=== PATIENT | female | born 1950 | race Caucasian/White ===

== ENCOUNTER → 2017-04-15 | Outpatient (CLI) | payer BC ==
[~2017-04-15] MED LIST: CLOP1TAB15 PO; CRS/10 PO; DOCU100C PO; LEVO50TA6 PO; LSN/10125 PO; METO50TA7 PO; POTA10CA28 PO; RANI1TAB13 PO; SITA50TA5 PO; TRAM-10 PO
[2017-04-15 09:41] LABS: ALT/SGPT 39 U/L (12-78); AST/SGOT 30 U/L (15-37); BLOOD UREA NITROGEN 17 mg/dl (7-18); CALCIUM 9.2 mg/dl (8.5-10.1); CARBON DIOXIDE 28 mmol/L (21-32); CHLORIDE 104 mmol/L (98-107); CREATININE 0.73 mg/dl (0.60-1.20); GLUCOSE 74 mg/dl (70-99); POTASSIUM 3.8 mmol/L (3.5-5.1); SODIUM 140 mmol/L (136-145)
[2017-04-15 09:51] LABS: CHOLESTEROL 136 mg/dl (0-200); CHOLESTEROL/HDL RATIO 2.7; HDL CHOLESTEROL 51 mg/dl; LDL CHOLESTEROL CALCULATED 69 mg/dl; TRIGLYCERIDES 81 mg/dl (0-150); VERY LOW DENSITY LIPOPROT CALC 16 mg/dl
== END | disposition home or self-care (01) ==
LOC: C.LAB 06:19
DX: E11.9 Type 2 diabetes mellitus without complications (principal); I10 Essential (primary) hypertension; E78.5 Hyperlipidemia, unspecified; E03.9 Hypothyroidism, unspecified

== ENCOUNTER → 2017-05-14 | Outpatient (CLI) | payer BC ==
--- NOTE | 2017-05-14 16:08 | MAMMOGRAPHY REPORT ---
BILATERAL DIGITAL SCREENING MAMMOGRAM WITH CAD: 05/14/2017 CLINICAL HISTORY: Routine screening. Patient has no complaints. TECHNIQUE: Bilateral CC, MLO and repeat left cc views with the nipple in profile were obtained. Cur rent study was also evaluated with a Computer Aided Detection (CAD) system. COMPARISON: Comparison is made to exams dated: 05/11/2016 mammogram, 05/10/2015 mammogram, 03/17/2014 ma mmogram, 03/16/2013 mammogram, 03/13/2012 mammogram, and 03/13/2011 mammogram - [facility]. BREAST COMPOSITION: The tissue of both breasts is almost entirely fatty. FINDINGS: There is a stable 9 mm focal asymmetry in the lower inner quadrant of the left breast, and a stable focal asymmetry in the 6:00 right breast. A few benign round calcifications. No new suspici ous mass, architectural distortion or cluster of microcalcifications is seen. IMPRESSION: ACR BI-RADS CATEGORY 1: NEGATIVE There is no mammographic evidence of malignancy. A 1 year screening mammogram is recommended. The pa tient will receive written notification of the results. Approximately 10% of breast cancers are not detected with mammography. A negative mammographic report should not delay biopsy if a clinically suggestive mass is present. Kaya Jackson M.D. ay/:05/14/2017 15:48:05 Showroom Manager: Padma ACEVEDO)(Carly), [facility] letter sent: Normal 1/2 BI-RADS Code: ACR BI-RADS Category 1: Negative
== END | disposition home or self-care (01) ==
LOC: C.MAMM 15:13
DX: Z12.31 Encounter for screening mammogram for malignant neoplasm of breast (principal); M85.851 Other specified disorders of bone density and structure, right thigh

== ENCOUNTER → 2017-10-17 | Outpatient (CLI) | payer BC ==
[2017-10-17 14:59] LABS: ALT/SGPT 31 U/L (12-78); AST/SGOT 26 U/L (15-37); BLOOD UREA NITROGEN 14 mg/dl (7-18); CALCIUM 9.2 mg/dl (8.5-10.1); CARBON DIOXIDE 27 mmol/L (21-32); CHOLESTEROL 129 mg/dl (0-200); CREATININE 0.87 mg/dl (0.60-1.20); GLUCOSE 93 mg/dl (70-99); POTASSIUM 4.1 mmol/L (3.5-5.1); SODIUM 138 mmol/L (136-145)
[2017-10-17 15:09] LABS: LDL CHOLESTEROL CALCULATED 60 mg/dl
== END | disposition home or self-care (01) ==
LOC: C.LAB 13:51
DX: E11.9 Type 2 diabetes mellitus without complications (principal); E55.9 Vitamin D deficiency, unspecified; I10 Essential (primary) hypertension; E78.5 Hyperlipidemia, unspecified

== ENCOUNTER → 2018-05-09 | Outpatient (CLI) | payer BC ==
[~2018-05-09] MED LIST changes: -METO50TA7 PO; +METO50TA8 PO; +OPTIRAY 320 IV PRN
[2018-05-09 17:36] LABS: BASO % 0.4 %; BASO ABS # 0.04 K/uL (0-0.2); EOS % 8.4 %; HEMATOCRIT 43.5 % (37-47); IG# 0.01 K/uL (0.00-0.02); LYMPH % 34.2 %; LYMPH ABS # 3.26 K/uL (1.2-3.4); MEAN CELL VOLUME 97.3 fL (80-100); MEAN CORPUSCULAR HEMOGLOBIN 31.3 pg (25-34); MEAN CORPUSCULAR HGB CONC 32.2 g/dl (32-36); MEAN PLATELET VOLUME 11.8 fL (7.4-10.4); MONO % 6.3 %; NEUT % 50.6 %; NEUT ABS # 4.82 K/uL (1.4-6.5); PLATELET COUNT 294 K/uL (130-400); RED CELL DISTRIBUTION WIDTH CV 13.4 % (11.5-14.5); RED CELL DISTRIBUTION WIDTH SD 47.9 fL (36.4-46.3); WHITE BLOOD COUNT 9.53 K/uL (4.8-10.8)
[2018-05-09 18:01] LABS: BLOOD UREA NITROGEN 20 mg/dl (7-18); CALCIUM 9.6 mg/dl (8.5-10.1); CARBON DIOXIDE 24 mmol/L (21-32); CREATININE 1.13 mg/dl (0.60-1.20); GLUCOSE 96 mg/dl (70-99); POTASSIUM 4.1 mmol/L (3.5-5.1); SODIUM 137 mmol/L (136-145)
--- NOTE | 2018-05-09 19:53 | DIAGNOSTIC IMAGING REPORT ---
SOFT TISSUE NECK WITH HISTORY: 67 years-old Female PARAPHARYNGEAL ABCESS acute neck pain with possible parapharyngeal abscess. COMPARISON: Cervical spine 03/04/2009 TECHNIQUE: Multiple axial CT images of the soft tissues of the neck were obtained following the intravenous administration of 92 mL Optiray 320 IV contrast. A dose lowering technique was used consistent with the principals of GALINA. FINDINGS: Imaged intracranial structures demonstrate no acute abnormality. Nasopharynx, oral pharynx and hypopharynx are widely patent and within normal limits. Mild secretions noted within the vallecula and piriform sinuses. The epiglottis, epiglottic folds and true vocal cords appear unremarkable. Subglottic airway is patent and within normal limits. The parapharyngeal fat planes in tissues are symmetric and within normal limits. The adenoid, palatine and lingual tonsils are within normal limits. No drainable fluid collections. No prevertebral edema. Medial course of the right internal carotid arteries in a retropharyngeal location. Calcified plaque about the left carotid bulb. Thyroid is homogeneous and unremarkable. Lung apices appear clear. No pathologically enlarged lymph nodes are identified. 1.1 x 0.8 cm ovoid lesion about the left parotid suggests probable intraparenchymal lymph node. Bones appear intact. Multilevel uncovertebral spurring and facet arthrosis. Mild to moderate intervertebral disc space narrowing is noted at C4-C5 and C5-C6 with mild disc space narrowing at C6-C7. Mastoid air cells and middle ear cavities are clear. Paranasal sinuses also appear generally clear. IMPRESSION: 1. Unremarkable CT of the soft tissues of the neck. No inflammatory changes or parapharyngeal abscess identified. 2. 1.1 x 0.8 cm ovoid lesion about the superficial lobe of the left parotid gland suggests probable intraglandular lymph node. 3. No adenopathy. 4. Degenerative changes about the cervical spine as above. The above report was generated using voice recognition software. It may contain grammatical, syntax or spelling errors. Electronically signed by: Trey Benitez M.D. 05/09/2018 7:51 PM Dictated Date/Time: 05/09/2018 7:44 PM
== END | disposition home or self-care (01) ==
LOC: C.CTS 16:48
DX: J39.0 Retropharyngeal and parapharyngeal abscess (principal); K12.2 Cellulitis and abscess of mouth; M47.812 Spondylosis without myelopathy or radiculopathy, cervical region

== ENCOUNTER 2020-04-27 17:32 | Inpatient (IN) ==
--- NOTE | 2020-04-27 17:48 | Emergency Department Note ---
Impression & Plan Sepsis, Leg pain ED Provider Note NAME: HAKEEM SPEARS AGE: 69 SEX: F : 1950 ARRIVES VIA: Ambulance INFORMANT: Patient, ED PROVIDER(S): Phil Molina MD Chief Complaint: Leg pain, shortness of breath HPI: Patient states that she has had some shortness of breath and associated leg pain. The patient denies any prior history of DVT or PE. The patient denies any recent travel. The patient was recently placed on antibiotics for photosensitivity by her primary care physician. Patient states that her leg pain began today just all of a sudden. The patient denies any recent heavy lifting twisting or turning. The patient describes it primarily in her left lower extremity at the calf. The patient states that is sharp and constant. It is nonradiating. Patient states that she does have difficulty associated walking. The patient shortness of breath has not been associated with any cough. Patient does present with fever. Patient has noticed some worsening shortness of breath with exertion and with lying flat compared to sitting upright or with rest which both improve her shortness of breath. The patient does not wear oxygen at home. Patient denies any recent surgeries or procedures. ROS: See HPI for pertinent positives and negatives. A total of 10 systems were reviewed and otherwise negative. Past medical history: See below Surgical history: See below Social history: See below Physical Exam: GENERAL: Mildly ill in appearance, wearing a mask and nasal cannula in place. EYE EXAM: Normal conjunctiva. PERRL, no anisocoria and EOM's grossly intact w/o pain. NECK: Supple, no nuchal rigidity, no adenopathy, non-tender. No signs of meningismus. LUNGS: No audible wheezing or rhonchi. Normal chest wall mechanics. HEART: Cardiac and regular, no MRG. ABDOMEN: Abdomen soft, non-tender, normo-active bowel sounds, no masses, no rebound or guarding. BACK: No CVA TTP. SKIN: No rashes and no bruising. UPPER EXTREMITIES: Upper extremities are grossly normal. LOWER EXTREMITIES: Pain to the left calf without obvious erythema, bilateral lower extremities appear grossly symmetric in size, good DP pulses and well perfused bilaterally, left lower extremity does appear slightly shortened and externally rotated. NEURO EXAM: A&O x3, cranial nerves II-XII grossly intact, normal speech, moves all 4 extremities on command w/o issue. Differential diagnoses: Sepsis, UTI, pneumonia, metabolic, electrolyte abnormalities, cardiac sources, intracerebral event, toxicologic, neurologic, as well as other pathologies. Course: Patient was seen and evaluated the bedside. Full history physical exam was performed. EKG: Indication: Shortness of breath Sinus tachycardia, rate 123, normal intervals, normal axis, Q wave and T WI in lead III, no obvious ST changes. Nonspecific T wave abnormalities now present with associated increase in heart rate from comparison EKG November 19, 2019. Imaging Studies: Radiology results as stated below per my review in the radiologist's interpretation: XR chest 1V portable HISTORY: 69 years-old Female SEPSIS acute sepsis with left hip pain COMPARISON: Chest radiograph 11/19/2019 TECHNIQUE: Portable AP view of the chest FINDINGS: Cardiac silhouette is enlarged. Mild right hemidiaphragmatic elevation. Subsegmental left basilar opacities. No pneumothorax, large pleural effusion or overt pulmonary edema. Degenerative changes of the shoulders and spine. Cholecystectomy. IMPRESSION: 1. Mild left lung base opacities suggest probable atelectasis. 2. Mild right hemidiaphragmatic elevation. ACT 112: Negative or not required by law. The above report was generated using voice recognition software. It may contain grammatical, syntax or spelling errors. Electronically signed by: Trey Benitez M.D. 04/27/2020 7:29 PM Dictated: 04/27/201927 Transcribed: 04/27/201927 XR hip LT 2V w pelvis HISTORY: 69 years-old Female appears short, external rotation, painful acute left hip pain COMPARISON: None TECHNIQUE: AP view the pelvis with 2 views of the left hip FINDINGS: Limited exam secondary to patient body habitus. 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 Degeneration of the SI joints and imaged lumbar spine. No definite acute fracture or dislocation. IMPRESSION: No definite acute fracture or dislocation. ACT 112: Negative or not required by law. The above report was generated using voice recognition software. It may contain grammatical, syntax or spelling errors. Electronically signed by: Trey Benitez M.D. 04/27/2020 8:22 PM Dictated: 04/27/202020 Transcribed: 04/27/202020 CT angio chest PE protocol CT DOSE: 755.09 mGy.cm HISTORY: 69 years-old Female with PE. Acute chest pain with shortness of breath TECHNIQUE: Multiple CTA images of the chest were obtained after the intravenous administration of 118 ml Optiray 320. Coronal and sagittal MIPS were obtained from the axial data set and were submitted for review. All measurements were obtained according to NASCET criteria. A dose lowering technique was utilized adhering to the principles of ALARA. COMPARISON: Chest radiograph of same day FINDINGS: CTA: The heart is normal in size. No pericardial effusion. Coronary artery calcifications. No thoracic aortic aneurysm or dissection. Patency of the imaged great vessels. The pulmonary arterial tree is opacified to the level of the subsegmental branches and demonstrates no filling defects to suggest thromboembolic disease. CT CHEST: Unremarkable thyroid. No adenopathy. Trace pleural effusions. Right hemidiaphragmatic elevation. Mild subsegmental bibasilar groundglass densities suggest atelectasis. No overt pulmonary edema or airspace consolidation typical for pneumonia. 4 mm subpleural nodule of the lateral segment right middle lobe, likely benign. There are a few scattered thin-walled cysts of the lung bases measuring up to 2.1 cm the left lower lobe. Central airways are patent. Tiny hiatal hernia. Cholecystectomy. Probable hepatic steatosis. The bones appear intact. IMPRESSION: 1. No acute aortic pathology or evidence of pulmonary thromboembolic disease. 2. Right hemidiaphragmatic elevation with mild subsegmental bibasilar atelectasis. 3. No pleural effusion or airspace consolidation typical for pneumonia. ACT 112: Negative or not required by law. The above report was generated using voice recognition software. It may contain grammatical, syntax or spelling errors. Electronically signed by: Trey Benitez M.D. 04/27/2020 8:55 PM Dictated: 04/27/202048 Transcribed: 04/27/202048 Cardiac monitoring: An order was placed for continuous cardiac monitoring. The monitor shows a rate of 125 with sinus tachycardia rhythm. MDM: Patient was seen due to concern for leg pain and shortness of breath. Broad- spectrum antibiotics small Garcia IV fluids were also initially ordered. Patient also did have a chest x-ray and hip and pelvis x-ray completed of the left leg. Patient was ordered pain medication along with blood work and the patient did have an angiography pending. Upon reassessment the patient was feeling improved and was off oxygen. Given the patient's shortness of breath and fever patient will be admitted to the hospitalist service. Cover test is negative CT angiography does not show any evidence of obvious PE or consolidation. Patient is noted to have mildly elevated hemidiaphragm. Patient was admitted to Dr. Gibbons [facility] physician group medicine service. 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 Beliefs That Will Affect Care: None Current Living Situation: Family Current Living Situation Comment: brother Feels Safe at Home: Yes Allergies Allergies Allergy/AdvReac Type Severity Reaction Status Date / Time bee venom protein (honey bee) Allergy Mild Swelling Verified 04/27/20 21:52 Penicillins Allergy Unknown Unknown Verified 04/27/20 21:52 Home Meds Home Medications Medication Instructions Recorded Confirmed Lactobacillus acidophilus 0 mg PO QAM 04/27/20 04/27/20 [Acidophilus] aspirin [Aspirin Low Dose] 81 mg PO QAM 04/27/20 04/27/20 cholecalciferol (vitamin D3) 25 mcg PO QAM 04/27/20 04/27/20 [Vitamin D3] clopidogrel 75 mg PO QAM 04/27/20 04/27/20 docusate sodium 100 mg PO DAILY PRN 04/27/20 04/27/20 famotidine [Acid Telegraph Inspector 20 mg PO HS 04/27/20 04/27/20 (famotidine)] furosemide 20 mg PO QAM 04/27/20 04/27/20 levothyroxine [Euthyrox] 75 mcg PO QAM 04/27/20 04/27/20 lisinopril-hydrochlorothiazide 1 tab PO QAM 04/27/20 04/27/20 metformin 1,000 mg PO BID 04/27/20 04/27/20 metoprolol succinate 50 mg PO QPM 08/12/20 08/12/20 minocycline 50 mg PO BID 04/27/20 04/27/20 phentermine 18.75 mg PO BID 04/27/20 04/27/20 potassium chloride 10 meq PO QAM 04/27/20 04/27/20 rosuvastatin 20 mg PO QAM 04/27/20 04/27/20 topiramate 50 mg PO BID 04/27/20 04/27/20 triamcinolone acetonide 1 applic TOPICAL BID PRN 04/27/20 04/27/20 Results & Data (ED) Vital Signs Vital Signs - 24 hr 04/27/20 18:28 04/27/20 18:30 04/27/20 18:45 Pulse Rate 127 H 129 H Pulse Rate from SpO2 Sensor 128 H 146 H Respiratory Rate 33 H 22 Respiratory Effort / Characteristics Short of Breath Blood Pressure Blood Pressure Mean Pulse Oximetry 97 97 Oxygen Delivery Method Nasal Cannula 04/27/20 19:00 04/27/20 19:15 04/27/20 19:30 Pulse Rate 128 H 127 H 130 H Pulse Rate from SpO2 Sensor 127 H 127 H 131 H Respiratory Rate 13 29 H 24 Respiratory Effort / Characteristics Blood Pressure Blood Pressure Mean Pulse Oximetry 97 95 Oxygen Delivery Method 04/27/20 19:52 04/27/20 20:00 04/27/20 20:30 Pulse Rate 126 H 124 H 124 H Pulse Rate from SpO2 Sensor 127 H 124 H 124 H Respiratory Rate 23 24 22 Respiratory Effort / Characteristics Blood Pressure 90/65 L 88/44 L 99/53 L Blood Pressure Mean 70 61 60 Pulse Oximetry 98 97 96 Oxygen Delivery Method 04/27/20 20:31 04/27/20 20:45 04/27/20 21:00 Pulse Rate 116 H 124 H 125 H Pulse Rate from SpO2 Sensor 126 H 124 H 125 H Respiratory Rate 20 21 21 Respiratory Effort / Characteristics Blood Pressure 104/53 L Blood Pressure Mean 65 Pulse Oximetry 95 94 92 Oxygen Delivery Method 04/27/20 21:01 04/27/20 21:15 04/27/20 21:30 Pulse Rate 124 H 122 H 123 H Pulse Rate from SpO2 Sensor 125 H 122 H 123 H Respiratory Rate 22 24 13 Respiratory Effort / Characteristics Blood Pressure 108/53 L Blood Pressure Mean 62 Pulse Oximetry 92 93 93 Oxygen Delivery Method 04/27/20 21:31 04/27/20 21:45 04/27/20 22:00 Pulse Rate 122 H 121 H 121 H Pulse Rate from SpO2 Sensor 124 H 122 H 122 H Respiratory Rate 23 19 16 Respiratory Effort / Characteristics Blood Pressure 83/65 L Blood Pressure Mean 68 Pulse Oximetry 93 94 94 Oxygen Delivery Method 04/27/20 22:01 04/27/20 22:15 04/27/20 22:30 Pulse Rate 122 H 121 H 121 H Pulse Rate from SpO2 Sensor 122 H 121 H 122 H Respiratory Rate 21 26 H 18 Respiratory Effort / Characteristics Blood Pressure 116/71 Blood Pressure Mean 81 Pulse Oximetry 94 95 95 Oxygen Delivery Method Home Medications Current Medication List: was personally reviewed by me Laboratory Data Attestation: I reviewed the patient's lab results. Result diagrams: 04/28/20 05:06 04/28/20 05:06 Lab Results 04/27/20 04/27/20 04/27/20 Range/Units 18:25 19:29 19:29 WBC 12.84 H (4.8-10.8) K/uL RBC 4.12 L (4.2-5.4) M/uL Hgb 12.4 (12.0-16.0) g/dL POC Hgb (12.0-16.0) g/dl Hct 38.7 (37-47) % POC Hct (37-47) % MCV 93.9 (80-100) fL MCH 30.1 (25-34) pg MCHC 32.0 (32-36) g/dL RDW Std Deviation 47.5 H (36.4-46.3) fL RDW Coeff of Elton 13.7 (11.5-14.5) % Plt Count 502 H (130-400) K/uL MPV 10.1 (7.4-10.4) fL Immature Gran % (Auto) 0.5 % Neut % (Auto) 82.4 % Lymph % (Auto) 8.5 % [place] % (Auto) 6.9 % Eos % (Auto) 1.5 % Baso % (Auto) 0.2 % Neut # (Auto) 10.59 H (1.4-6.5) K/uL Lymph # (Auto) 1.09 L (1.2-3.4) K/uL [place] # (Auto) 0.88 H (0.11-0.59) K/uL Eos # (Auto) 0.19 (0-0.5) K/uL Baso # (Auto) 0.02 (0-0.2) K/uL Immature Gran # (Auto) 0.07 H (0.00-0.02) K/uL PT (9.0-12.0) Seconds INR (0.9-1.1) APTT (21.0-31.0) Seconds PTT Ratio POC Sodium (135-144) mmol/L Sodium (136-145) mmol/L POC Potassium (3.3-5.0) mmol/L Potassium (3.5-5.1) mmol/L POC Chloride (101-112) mmol/L Chloride (98-107) mmol/L Carbon Dioxide (21-32) mmol/L POC Total CO2 (24-31) mmol/L Anion Gap (3-11) POC Anion Gap (16-25) mmol/L POC BUN (7-18) mg/dl BUN (7-18) mg/dl Creatinine (0.6-1.2) mg/dl POC Creatinine (0.6-1.3) mg/dl Est Cr Clr Drug Dosing ml/min Est GFR ( Amer) Est GFR (Non-Af Amer) BUN/Creatinine Ratio (10-20) Glucose (70-99) mg/dl POC Glucose (other) (70-99) mg/dl Lactate (0.4-2.0) mmol/L Calcium (8.5-10.1) mg/dl POC Ioniz Calcium Quynh (1.12-1.32) mmol/l Magnesium (1.8-2.4) mg/dl Total Bilirubin (0.2-1) mg/dl AST (15-37) U/L ALT (12-78) U/L Alkaline Phosphatase (45-117) U/L Troponin I (0-0.045) ng/ml NT-Pro-B Natriuret Pep (0-900) pg/ml Total Protein (6.4-8.2) gm/dl Albumin (3.4-5.0) gm/dl Globulin (2.5-4.0) gm/dl Albumin/Globulin Ratio (0.9-2) Procalcitonin 0.15 (0-0.5) ng/ml COVID-19 PCR NEGATIVE (Negative) 04/27/20 04/27/20 04/27/20 Range/Units 19:29 19:29 19:29 WBC (4.8-10.8) K/uL RBC (4.2-5.4) M/uL Hgb (12.0-16.0) g/dL POC Hgb (12.0-16.0) g/dl Hct (37-47) % POC Hct (37-47) % MCV (80-100) fL MCH (25-34) pg MCHC (32-36) g/dL RDW Std Deviation (36.4-46.3) fL RDW Coeff of Elton (11.5-14.5) % Plt Count (130-400) K/uL MPV (7.4-10.4) fL Immature Gran % (Auto) % Neut % (Auto) % Lymph % (Auto) % [place] % (Auto) % Eos % (Auto) % Baso % (Auto) % Neut # (Auto) (1.4-6.5) K/uL Lymph # (Auto) (1.2-3.4) K/uL [place] # (Auto) (0.11-0.59) K/uL Eos # (Auto) (0-0.5) K/uL Baso # (Auto) (0-0.2) K/uL Immature Gran # (Auto) (0.00-0.02) K/uL PT 11.3 (9.0-12.0) Seconds INR 1.1 (0.9-1.1) APTT 21.2 (21.0-31.0) Seconds PTT Ratio 0.8 POC Sodium (135-144) mmol/L Sodium 133 L (136-145) mmol/L POC Potassium (3.3-5.0) mmol/L Potassium 5.2 H (3.5-5.1) mmol/L POC Chloride (101-112) mmol/L Chloride 104 (98-107) mmol/L Carbon Dioxide 22 (21-32) mmol/L POC Total CO2 (24-31) mmol/L Anion Gap 7.0 (3-11) POC Anion Gap (16-25) mmol/L POC BUN (7-18) mg/dl BUN 38 H (7-18) mg/dl Creatinine 1.11 (0.6-1.2) mg/dl POC Creatinine (0.6-1.3) mg/dl Est Cr Clr Drug Dosing 59.5 ml/min Est GFR ( Amer) 59.5 Est GFR (Non-Af Amer) 51.3 BUN/Creatinine Ratio 34.7 H (10-20) Glucose 110 H (70-99) mg/dl POC Glucose (other) (70-99) mg/dl Lactate 1.5 (0.4-2.0) mmol/L Calcium 9.6 (8.5-10.1) mg/dl POC Ioniz Calcium Quynh (1.12-1.32) mmol/l Magnesium 1.7 L (1.8-2.4) mg/dl Total Bilirubin 0.5 (0.2-1) mg/dl AST 12 L (15-37) U/L ALT 18 (12-78) U/L Alkaline Phosphatase 62 (45-117) U/L Troponin I < 0.015 (0-0.045) ng/ml NT-Pro-B Natriuret Pep 3080 H (0-900) pg/ml Total Protein 6.9 (6.4-8.2) gm/dl Albumin 2.9 L (3.4-5.0) gm/dl Globulin 4.0 (2.5-4.0) gm/dl Albumin/Globulin Ratio 0.7 L (0.9-2) Procalcitonin (0-0.5) ng/ml COVID-19 PCR (Negative) 04/27/20 Range/Units 19:40 WBC (4.8-10.8) K/uL RBC (4.2-5.4) M/uL Hgb (12.0-16.0) g/dL POC Hgb 13.3 (12.0-16.0) g/dl Hct (37-47) % POC Hct 39 (37-47) % MCV (80-100) fL MCH (25-34) pg MCHC (32-36) g/dL RDW Std Deviation (36.4-46.3) fL RDW Coeff of Elton (11.5-14.5) % Plt Count (130-400) K/uL MPV (7.4-10.4) fL Immature Gran % (Auto) % Neut % (Auto) % Lymph % (Auto) % [place] % (Auto) % Eos % (Auto) % Baso % (Auto) % Neut # (Auto) (1.4-6.5) K/uL Lymph # (Auto) (1.2-3.4) K/uL [place] # (Auto) (0.11-0.59) K/uL Eos # (Auto) (0-0.5) K/uL Baso # (Auto) (0-0.2) K/uL Immature Gran # (Auto) (0.00-0.02) K/uL PT (9.0-12.0) Seconds INR (0.9-1.1) APTT (21.0-31.0) Seconds PTT Ratio POC Sodium 131 L (135-144) mmol/L Sodium (136-145) mmol/L POC Potassium 5.1 H (3.3-5.0) mmol/L Potassium (3.5-5.1) mmol/L POC Chloride 102 (101-112) mmol/L Chloride (98-107) mmol/L Carbon Dioxide (21-32) mmol/L POC Total CO2 21 L (24-31) mmol/L Anion Gap (3-11) POC Anion Gap 14.0 L (16-25) mmol/L POC BUN 35 H (7-18) mg/dl BUN (7-18) mg/dl Creatinine (0.6-1.2) mg/dl POC Creatinine 1.1 (0.6-1.3) mg/dl Est Cr Clr Drug Dosing ml/min Est GFR ( Amer) Est GFR (Non-Af Amer) BUN/Creatinine Ratio (10-20) Glucose (70-99) mg/dl POC Glucose (other) 113 H (70-99) mg/dl Lactate (0.4-2.0) mmol/L Calcium (8.5-10.1) mg/dl POC Ioniz Calcium Quynh 1.18 (1.12-1.32) mmol/l Magnesium (1.8-2.4) mg/dl Total Bilirubin (0.2-1) mg/dl AST (15-37) U/L ALT (12-78) U/L Alkaline Phosphatase (45-117) U/L Troponin I (0-0.045) ng/ml NT-Pro-B Natriuret Pep (0-900) pg/ml Total Protein (6.4-8.2) gm/dl Albumin (3.4-5.0) gm/dl Globulin (2.5-4.0) gm/dl Albumin/Globulin Ratio (0.9-2) Procalcitonin (0-0.5) ng/ml COVID-19 PCR (Negative) Administered Medications Acetaminophen (Acetaminophen 325 Mg Tab) 650 mg PO Q4H PRN PRN Reason: pain/fever Stop: 05/28/20 00:34 Last Admin: 04/28/20 13:39 Dose: 650 mg Documented by: [id number] Admin: 04/28/20 07:41 Dose: 650 mg Documented by: [id number] Aspirin (Aspirin 81 Mg Ectab) [address] [facility] Stop: 05/28/20 08:59 Last Admin: 04/28/20 07:43 Dose: 81 mg Documented by: [id number] Clopidogrel Bisulfate (Clopidogrel Bisulfate 75 Mg Tab) [address] [facility] Stop: 05/28/20 08:59 Last Admin: 04/28/20 07:45 Dose: 75 mg Documented by: [id number] Diclofenac Sodium (Diclofenac Sod 1% Gel 100 Gm Tube) 2 gm EXT 3XDQ4 PRN PRN Reason: arthritis Stop: 05/28/20 14:20 Last Admin: 04/28/20 17:49 Dose: 2 gm Documented by: [id number] Heparin Sodium (Porcine) 7,500 (units/ Syringe) 0.75 mls @ 10 mls/min SQ Q8 [facility] Stop: 05/28/20 05:59 Last Admin: 04/28/20 13:42 Dose: 10 mls/min Documented by: [id number] Cosigned by: [id number] Admin: 04/28/20 05:20 Dose: 10 mls/min Documented by: [id number] Cosigned by: [id number] Ciprofloxacin (Cipro / D5w) 400 mg in 200 mls @ 100 mls/hr IV Q12H [facility]; Protocol Stop: 05/04/20 14:59 Last Infusion: 04/28/20 17:49 Dose: 0 mls/hr Documented by: [id number] Admin: 04/28/20 15:27 Dose: 100 mls/hr Documented by: [id number] Insulin Aspart (Insulin Aspart 100 Units/Ml 3 Ml Pen) 0 units SC ACHS [facility] Stop: 05/28/20 07:29 Last Admin: 04/28/20 13:42 Dose: 2 units Documented by: [id number] Cosigned by: [id number] Admin: 04/28/20 09:45 Dose: 1 units Documented by: [id number] Cosigned by: [id number] Insulin Glargine (Insulin Glargine Solostar 100 Units/Ml 3 Ml Pen) 10 units SC BID [facility] Stop: 05/28/20 08:59 Last Admin: 04/28/20 09:46 Dose: 10 units Documented by: [id number] Cosigned by: [id number] Lactobacillus Acidophilus (Lactobacillus Acidophilus (Floranex) Tab) [facility] Stop: 05/28/20 08:59 Last Admin: 04/28/20 07:43 Dose: 4 tab Documented by: [id number] Levothyroxine Sodium (Levothyroxine Sodium 75 Mcg Tablet) [facility]: 05/28/20 06:29 Last Admin: 04/28/20 05:20 Dose: 75 mcg Documented by: [id number] Magnesium Oxide (Magnesium Oxide 400 Mg Tab) [address] [facility] Stop: 05/28/20 08:59 Last Admin: 04/28/20 09:53 Dose: 400 mg Documented by: [id number] Potassium Chloride (Potassium Chloride 10 Meq Tabcr) [address] [facility] Stop: 05/28/20 08:59 Last Admin: 04/28/20 07:44 Dose: 10 meq Documented by: [id number] Rosuvastatin Calcium (Rosuvastatin Calcium 20 Mg Tab) [address] [facility] Stop: 05/28/20 08:59 Last Admin: 04/28/20 07:44 Dose: 20 mg Documented by: [id number] Triamcinolone Acetonide (Triamcinolone Acet 0.025% Cr 15 Gm Tube) 1 appln EXT 3XDQ4 PRN PRN Reason: Rash Stop: 05/28/20 13:46 Last Admin: 04/28/20 17:48 Dose: 1 appln Documented by: [id number] Vitamin D (Cholecalciferol 1,000 Units 25 Mcg Tab) 1,000 [facility] Stop: 05/28/20 08:59 Last Admin: 04/28/20 07:43 Dose: 1,000 units Documented by: [id number] Discontinued Medications Sodium Chloride (Nss 1000ml) 500 mls @ 999 mls/hr IV .Q31M ONE Stop: 04/27/20 18:27 Last Infusion: 04/27/20 20:26 Dose: 0 mls/hr Documented by: [id number] Admin: 04/27/20 19:45 Dose: 999 mls/hr Documented by: [id number] Acetaminophen (Ofirmev) 65 mls @ 200 mls/hr IV NOW ONE; Protocol Stop: 04/27/20 18:16 Last Infusion: 04/27/20 20:26 Dose: 0 mls/hr Documented by: [id number] Admin: 04/27/20 19:45 Dose: 200 mls/hr Documented by: [id number] Vancomycin HCl 2,750 mg/ (Sodium Chloride) 555 mls @ 200 mls/hr IV NOW ONE Stop: 04/27/20 20:43 Last Infusion: 04/27/20 23:11 Dose: 0 mls/hr Documented by: [id number] Admin: 04/27/20 19:45 Dose: 200 mls/hr Documented by: [id number] Levofloxacin/Dextrose (Levaquin/D5w) 750 mg in 150 mls @ 100 mls/hr IV Q24H [facility] Stop: 04/29/20 18:14 Last Infusion: 04/27/20 21:45 Dose: 0 mls/hr Documented by: [id number] Admin: 04/27/20 19:45 Dose: 100 mls/hr Documented by: [id number] Sodium Chloride (Nss 1000ml) 1,000 mls @ 999 mls/hr IV .Q1H1M ONE Stop: 04/27/20 23:14 Last Infusion: 04/28/20 00:41 Dose: 0 mls/hr Documented by: [id number] Admin: 04/27/20 23:33 Dose: 999 mls/hr Documented by: [id number] Albumin Human (Albumin 25%) 50 mls @ 50 mls/hr IV Q1H [facility] Stop: 04/28/20 00:29 Last Infusion: 04/28/20 01:37 Dose: 0 mls/hr Documented by: [id number] Admin: 04/28/20 00:43 Dose: 50 mls/hr Documented by: [id number] Infusion: 04/28/20 00:37 Dose: 0 mls/hr Documented by: [id number] Admin: 04/27/20 23:25 Dose: 50 mls/hr Documented by: [id number] Sodium Chloride (Nss 1000ml) 500 mls @ 999 mls/hr IV .Q31M ONE Stop: 04/28/20 05:29 Last Infusion: 04/28/20 07:56 Dose: 0 mls/hr Documented by: [id number] Admin: 04/28/20 05:20 Dose: 999 mls/hr Documented by: [id number] Ioversol (Optiray 320 125ml) 118 ml IV ONCE ONE Stop: 04/27/20 20:23 Last Admin: 04/27/20 20:22 Dose: 118 ml Documented by: [id number] Morphine Sulfate (Morphine Sulfate 4 Mg/Ml 1 Ml Carp\Vial) 4 mg IV NOW STA Stop: 04/27/20 18:02 Last Admin: 04/27/20 20:00 Dose: 4 mg Documented by: [id number] Morphine Sulfate (Morphine Sulfate 2 Mg/Ml Carp) 1 mg IV NOW STA Stop: 04/28/20 00:36 Last Admin: 04/28/20 01:10 Dose: 1 mg Documented by: [id number] Topiramate (Topiramate 50 Mg Tab) 50 mg PO BID [facility] Stop: 05/28/20 08:59 Last Admin: 04/28/20 07:44 Dose: 50 mg Documented by: [id number] Discharge Plan Visit Data Chief Complaint: Leg Injury/Pain Stated Complaint: BILAT. LEG PAIN, CHILLS, FEVER ED Provider: Phil Molina Discharge Problem: Sepsis, Leg pain Patient Disposition: Admitted As Inpatient Discharge Instructions Interventions: ED Discharge Assessment Last Done: 04/28/20 00:04 Discharge Problem: Sepsis Qualifiers: Sepsis type: sepsis due to unspecified organism Sepsis acute organ dysfunction status: unspecified Qualified Code(s): A41.9 - Sepsis, unspecified organism Leg pain Qualifiers: Laterality: bilateral Qualified Code(s): M79.604 - Pain in right leg
[2020-04-27] MEDS ORDERED: SODIUM CHLORIDE 0.9% 1000ML 500 ML IV ONE (17:57)
[2020-04-27] MEDS ORDERED: VANCOMYCIN CONSULT ACTIVE PRN (17:57)
[2020-04-27] MEDS ORDERED: ACETAMINOPHEN 65 ML IV ONE (17:57)
[2020-04-27] MEDS ORDERED: VANCOMYCIN HCL 2,750 MG in SODIUM CHLORIDE 0.9% 500 ML IV ONE (17:57)
[2020-04-27] MEDS ORDERED: MoRPHine SULFATE 4 MG/ML 1 ML CARP\\VIAL IV STA (18:01)
[2020-04-27] MEDS ORDERED: LEVOFLOXACIN/D5W 750 MG/150 ML BAG IV SCH (18:15)
--- NOTE | 2020-04-27 19:30 | XRay Report ---
XR chest 1V portable HISTORY: 69 years-old Female SEPSIS acute sepsis with left hip pain COMPARISON: Chest radiograph 11/19/2019 TECHNIQUE: Portable AP view of the chest FINDINGS: Cardiac silhouette is enlarged. Mild right hemidiaphragmatic elevation. Subsegmental left basilar opa cities. No pneumothorax, large pleural effusion or overt pulmonary edema. Degenerative changes of the shoulders and spine. Cholecystectomy. IMPRESSION: 1. Mild left lung base opacities suggest probable atelectasis. 2. Mild right hemidiaphragmatic elevation. ACT 112: Negative or not required by law. The above report was generated using voice recognition software. It may contain grammatical, syntax o r spelling errors. Electronically signed by: Trey Benitez M.D. 04/27/2020 7:29 PM
[2020-04-27 19:48] LABS: Basophils # (auto) 0.02 K/uL (0-0.2); Basophils % (auto) 0.2 %; Eosinophils # (auto) 0.19 K/uL (0-0.5); Eosinophils % (auto) 1.5 %; Hematocrit (blood only) 38.7 % (37-47); Hemoglobin 12.4 g/dL (12.0-16.0); Immature Granulocytes # (auto) 0.07 K/uL (0.00-0.02); Immature Granulocytes % (auto) 0.5 %; Lymphocytes # (auto) 1.09 K/uL (1.2-3.4); Lymphocytes % (auto) 8.5 %; Mean Corpuscular Hemoglobin 30.1 pg (25-34); Mean Corpuscular Volume 93.9 fL (80-100); Mean Platelet Volume 10.1 fL (7.4-10.4); Monocytes # (auto) 0.88 K/uL (0.11-0.59); Monocytes % (auto) 6.9 %; Neutrophils # (auto) 10.59 K/uL (1.4-6.5); Neutrophils % (auto) 82.4 %; Platelet Count 502 K/uL (130-400); RDW Coefficient of Variation 13.7 % (11.5-14.5); RDW Standard Deviation 47.5 fL (36.4-46.3); Red Blood Count 4.12 M/uL (4.2-5.4); White Blood Count 12.84 K/uL (4.8-10.8)
[2020-04-27 19:52] LABS: iSTAT Creatinine 1.1 mg/dl (0.6-1.3); iSTAT Hemoglobin 13.3 g/dl (12.0-16.0); iSTAT Ionized Calcium 1.18 mmol/l (1.12-1.32); iSTAT Potassium 5.1 mmol/L (3.3-5.0)
[2020-04-27 20:01] LABS: INR 1.1 (0.9-1.1); Partial Thromboplastin Ratio 0.8; Partial Thromboplastin Time 21.2 Seconds (21.0-31.0); Prothrombin Time 11.3 Seconds (9.0-12.0)
[2020-04-27 20:04] LABS: Alanine Aminotransferase 18 U/L (12-78); Albumin Level 2.9 gm/dl (3.4-5.0); Aspartate Aminotransferase 12 U/L (15-37); BUN Creatinine Ratio 34.7 (10-20); Blood Urea Nitrogen 38 mg/dl (7-18); Calcium 9.6 mg/dl (8.5-10.1); Carbon Dioxide 22 mmol/L (21-32); Chloride 104 mmol/L (98-107); Creatinine Clr Calc Pharmacy 59.5 ml/min; Est GFR (African American) 59.5; Est GFR (Non-African American) 51.3; Glucose 110 mg/dl (70-99); Magnesium 1.7 mg/dl (1.8-2.4); Potassium 5.2 mmol/L (3.5-5.1); Sodium 133 mmol/L (136-145)
[2020-04-27 20:09] LABS: Albumin Globulin Ratio 0.7 (0.9-2); Alkaline Phosphatase 62 U/L (45-117); Bilirubin,Total 0.5 mg/dl (0.2-1); NT Pro B Type Natriuretic Pept 3080 pg/ml (0-900); Total Protein 6.9 gm/dl (6.4-8.2); Troponin I < 0.015 ng/ml (0-0.045)
[2020-04-27] MEDS ORDERED: OPTIRAY 320 125ml IV ONE (20:22)
--- NOTE | 2020-04-27 20:23 | XRay Report ---
XR hip LT 2V w pelvis HISTORY: 69 years-old Female appears short, external rotation, painful acute left hip pain COMPARISON: None TECHNIQUE: AP view the pelvis with 2 views of the left hip FINDINGS: Limited exam secondary to patient body habitus. Mild osteoarthritis of the bilateral femoral acetabul ar joints. Degeneration of the SI joints and imaged lumbar spine. No definite acute fracture or dislo cation. IMPRESSION: No definite acute fracture or dislocation. ACT 112: Negative or not required by law. The above report was generated using voice recognition software. It may contain grammatical, syntax o r spelling errors. Electronically signed by: Trey Benitez M.D. 04/27/2020 8:22 PM
--- NOTE | 2020-04-27 20:57 | CT Scan Report ---
CT angio chest PE protocol CT DOSE: 755.09 mGy.cm HISTORY: 69 years-old Female with PE. Acute chest pain with shortness of breath TECHNIQUE: Multiple CTA images of the chest were obtained after the intravenous administration of 118 ml Optiray 320. Coronal and sagittal MIPS were obtained from the axial data set and were submitted for review. All measurements were obtained according to NASCET criteria. A dose lowering technique w as utilized adhering to the principles of ALARA. COMPARISON: Chest radiograph of same day FINDINGS: CTA: The heart is normal in size. No pericardial effusion. Coronary artery calcifications. No thoracic aor tic aneurysm or dissection. Patency of the imaged great vessels. The pulmonary arterial tree is opaci fied to the level of the subsegmental branches and demonstrates no filling defects to suggest thrombo embolic disease. CT CHEST: Unremarkable thyroid. No adenopathy. Trace pleural effusions. Right hemidiaphragmatic elevation. Mild subsegmental bibasilar groundglass densities suggest atelectasis. No overt pulmonary edema or airspa ce consolidation typical for pneumonia. 4 mm subpleural nodule of the lateral segment right middle lo be, likely benign. There are a few scattered thin-walled cysts of the lung bases measuring up to 2.1 cm the left lower lobe. Central airways are patent. Tiny hiatal hernia. Cholecystectomy. Probable hepatic steatosis. The bones appear intact. IMPRESSION: 1. No acute aortic pathology or evidence of pulmonary thromboembolic disease. 2. Right hemidiaphragmatic elevation with mild subsegmental bibasilar atelectasis. 3. No pleural effusion or airspace consolidation typical for pneumonia. ACT 112: Negative or not required by law. The above report was generated using voice recognition software. It may contain grammatical, syntax o r spelling errors. Electronically signed by: Trey Benitez M.D. 04/27/2020 8:55 PM
[2020-04-27] MEDS ORDERED: SODIUM CHLORIDE 0.9% 1000ML 1,000 ML IV ONE (22:14)
--- NOTE | 2020-04-27 22:48 | History & Physical Report ---
Date of Service April 27, 2020 Assessment & Plan (1) Leg swelling: (2) Fever: Andie is a 69-year-old female with a past medical history of CVA, hyperlipidemia, hypothyroidism, and diabetes who presents with 1 day of fevers/chills/night sweats and muscle aches and pains in her legs bilaterally left greater than right. Fever with out clear source, suspect viral Febrile to 38.4 on admission, tachycardic, mildly hypotensive Chest x-ray with no acute findings, CTA shows no PE and no overt infectious signs or consolidation No urinary symptoms No upper respiratory symptoms Received empiric Vanco and levofloxacin in the emergency department, discontinue antibiotics and follow clinically Unclear origin, suspect viral DVT evaluation as below Status post 1.5 L fluid bolus, tolerating oral well, continue p.o. hydration Blood cultures pending Leg pain Bilateral leg pain, left worse than right with mild left leg swelling and asymmetry No signs of PE on CTA. Lower extremity Dopplers pending Of note patient show signs of dehydration on admitting lab work, and also takes phentermine, lisinopril/hydrochlorothiazide, and rosuvastatin. Combination of dehydration with phentermine, her other chronic medications, and dehydration may contribute to muscle spasm/muscle cramps. Tylenol 50 mg every 4 hours as needed Morphine 1-2 mg every 4 hours as needed for breakthrough/severe pain Hypertension Hold [employer] antihypertensives for hypotension Patient on hydrochlorothiazide/lisinopril, metoprolol succinate prior to admission History of CVA Continue aspirin daily, continue Plavix daily. Patient reports distant CVA more than 10 years ago with no recurrent events. Recommend evaluation for movement to platelet monotherapy on discharge No residual deficits Continue rosuvastatin Continue topiramate Lung cysts Basilar lung cysts appreciated on CTA Unclear etiology, benign in appearance. She has a small fibrous papule on the nose and a history of some skin papules, which with her basilar lung cysts could be consistent with [place]-Angel DVT prophylaxis: Heparin Diet: Diabetic CODE STATUS: Conditional code, no CPR but okay with intubation, meds, and shock Disposition: Med/surge with telemetry (3) Hyperlipidemia: History of Present Illness Chief Complaint: Leg pain, fever Primary Care Provider: Nathen Becerra Jr, DO Andie is a 69-year-old female with a past medical history of stroke and diabetes who presents with 1 day of night sweats, chills, and bilateral left greater than right leg pain. She reports she has felt fatigued and "a little bit sick "for about a week, and was a little lightheaded after being in the sun. Last night she endorses chills, night sweats, and feeling feverish. She denies shortness of breath, chest pain, chest pressure, and difficulty breathing. Denies cough. Denies dysuria, increased urinary frequency. This morning she noticed a increase in a crampy painful sensation in both of her legs bilaterally, throughout the entire upper and lower leg circumferentially. She reports that this pain was as bad as a 10 out of 10 and prevented her from walking. She had no change in sensation. She feels that her inability to walk was more pain limited, and less weakness. She has recently been started on Lasix, otherwise no new medication changes. Medical history: Reviewed, includes stroke many years ago and photosensitive dermatitis Surgical history: Reviewed Medications: Reviewed Allergies: Reviewed, pertinent positive for penicillin Social: Denies tobacco, alcohol, and recreational drug use CODE STATUS: Does not want CPR, okay with shock and medications and intubation for respiratory support Allergies Allergy/AdvReac Type Severity Reaction Status Date / Time bee venom protein (honey bee) Allergy Mild Swelling Verified 04/27/20 21:52 Penicillins Allergy Unknown Unknown Verified 04/27/20 21:52 Home Medications Home Medications Medication Instructions Recorded Confirmed Type Lactobacillus acidophilus 0 mg PO QAM 04/27/20 04/27/20 History [Acidophilus] aspirin [Aspirin Low Dose] 81 mg PO QAM 04/27/20 04/27/20 History cholecalciferol (vitamin D3) 25 mcg PO QAM 04/27/20 04/27/20 History [Vitamin D3] clopidogrel 75 mg PO QAM 04/27/20 04/27/20 History docusate sodium 100 mg PO DAILY PRN 04/27/20 04/27/20 History famotidine [Acid House Rn 20 mg PO HS 04/27/20 04/27/20 History (famotidine)] furosemide 20 mg PO QAM 04/27/20 04/27/20 History levothyroxine [Euthyrox] 75 mcg PO QAM 04/27/20 04/27/20 History lisinopril-hydrochlorothiazide 1 tab PO QAM 04/27/20 04/27/20 History metformin 1,000 mg PO BID 04/27/20 04/27/20 History metoprolol succinate 50 mg PO QPM 04/27/20 04/27/20 History minocycline 50 mg PO BID 04/27/20 04/27/20 History phentermine 18.75 mg PO BID 04/27/20 04/27/20 History potassium chloride 10 meq PO QAM 04/27/20 04/27/20 History rosuvastatin 20 mg PO QAM 04/27/20 04/27/20 History topiramate 50 mg PO BID 04/27/20 04/27/20 History triamcinolone acetonide 1 applic TOPICAL BID PRN 04/27/20 04/27/20 History Past Med/Surg History Medical History (Updated 04/28/20 @ 17:51 by Phil Molina MD) Diabetes H/O: HTN (hypertension) Hyperlipidemia Hypothyroid Surgical History (Updated 04/27/20 @ 18:23 by Phil Molina MD) No pertinent past surgical history Social History Smoking Status: Never smoker Hx Alcohol Use: No Hx Substance Use: No Preferred Language: Tristanian Communication Ability: Effective Super[employer] Required: No Beliefs That Will Affect Care: None Current Living Situation: Family Current Living Situation Comment: brother Feels Safe at Home: Yes Review of Systems Review of Systems: Constitutional: See HPI Eyes: Denies double vision, vision change, eye pain ENT: Denies ear pain, sore throat, sinus pain Cardiovascular: Denies Chest pain, chest pressure, palpitations. Endorses lower extremity left greater than right swelling Respiratory: Denies shortness of breath, cough, sputum production, difficulty breathing Gastrointestinal: Denies abdominal pain, nausea, vomiting, constipation, diarrhea Genitourinary: Denies pain with urination, urinary urgency, urinary frequency Musculoskeletal: See HPI Integumentary: Denies acute rash/lesions/bruising. Endorses history of photosensitive dermatitis. Endorses history of some acne on her chest, small papules on the nose. Neurological: Denies headache, numbness, tingling Physical Exam Physical Exam: General: A&Ox3. NAD. Cooperative. HEENT: Atraumatic, normocephalic. Pulm: CTAB A&P. -wheezes, -rales, -rhonchi. Symmetrical chest rise. No increase work of breathing. No respiratory distress. Cardiac: Tachycardic, -mrg. Radial pulses intact and symmetrical. Abdominal: Nontender, nondistended, soft. BS present. CN II: Visual contreras are full to confrontation. Pupils are equal and react to light and accomidation. Visual acuity grossly intact. CN III, IV, : At primary gaze, there is no eye deviation. EoM intact without nystagmus. No visual field cuts. CN V: Facial sensation is intact to soft touch in all 3 divisions bilaterally. CN VII: No facial asymmetry, full strength to eyebrow raise, smile, eye close, and cheek puff. CN VII: Hearing is grossly intact. CN IX, X: Palate elevates symmetrically. Phonation is normal without dysarthria. CN XI: Head turning and shoulder shrug are intact CN XII: Tongue protrudes midline. Sensory: Light touch, pinprick intact in upper and low extremities without deficit or asymmetry. Appearance: Left lower extremity about 1 cm larger at the gastroc compared to the right. Tender to palpation through the bulk of the gastroc bilaterally, left more tender than the right. Left lower extremity warm to the touch, without overt erythema. Strength: RUE: Shoulder flexion/extension/internal rotation/external rotation, elbow flexion/extension, finger flexion/extension, labor economics professor strength, interosseous 5/5 LUE: Shoulder flexion/extension/internal rotation/external rotation, elbow flexion/extension, finger flexion/extension, labor economics professor strength, interosseous 5/5 RLE: ankle plantar flexion/dorsiflexion 5/5 LLE: ankle plantar flexion/dorsiflexion 5/5 Results & Data Results & Data ([facility]) Vital Signs (Past 12 Hours) Vital Signs Temp Pulse Resp BP Pulse Ox 04/27/20 21:45 121 H 19 94 04/27/20 21:31 122 H 23 93 04/27/20 21:30 123 H 13 108/53 L 93 04/27/20 21:15 122 H 24 93 04/27/20 21:01 124 H 22 92 04/27/20 21:00 125 H 21 104/53 L 92 04/27/20 20:45 124 H 21 94 04/27/20 20:31 116 H 20 95 04/27/20 20:30 124 H 22 99/53 L 96 04/27/20 20:00 124 H 24 88/44 L 97 04/27/20 19:52 126 H 23 90/65 L 98 04/27/20 19:30 130 H 24 95 04/27/20 19:15 127 H 29 H 97 04/27/20 19:00 128 H 13 04/27/20 18:45 129 H 22 04/27/20 18:30 127 H 33 H 97 04/27/20 18:28 97 04/27/20 17:42 38.4 C H 125 H 26 H 100/65 96 Code Status & VTE Plan VTE Prophylaxis Plan VTE Prophylaxis will be ordered: Yes Supervising Physician Co-Signing Physician Notes Attending addendum: I have physically seen this patient, have supervised the medical residents activities, and agree with the H&P unless as otherwise noted. Assessment and Plan: Febrile illness- Unclear source at this time. Did receive Vanco and Levaquin from the ED. Agree with following clinically at this time. Follow urine cultures and blood cultures. Received 1.5 L normal saline while in ED. Cerebrovascular disease/hypertension- Continue aspirin, clopidogrel, HCTZ and lisinopril. Would have a low threshold for holding HCTZ. Continue metoprolol succinate. Hyperlipidemia- Continue rosuvastatin Remaining orders and notations as noted Resident Activity Tracking Resident Involvement: Resident Care Provided Care Provided: Adult Hospital Medicine
[2020-04-27] MEDS: ALBUMIN 25% 50 ML IV SCH (23:25)
[2020-04-28] MEDS ORDERED: GLUCOSE 10 TABS/TUBE PO PRN (00:35)
[2020-04-28] MEDS ORDERED: DOCUSATE SODIUM 100 MG CAP PO PRN (00:35)
[2020-04-28] MEDS ORDERED: CARBOHYDRATES FOR HYPOGLYCEMIA PO PRN (00:35)
[2020-04-28] MEDS ORDERED: MoRPHine SULFATE 2 MG/ML CARP IV STA (00:35)
[2020-04-28] MEDS ORDERED: GLUCOSE 40% GEL 15 GM TUBE PO PRN (00:35)
[2020-04-28] MEDS ORDERED: GLUCAGON FOR INJ 1 MG VIAL SQ PRN (00:35)
[2020-04-28] MEDS ORDERED: DEXTROSE 50% 50 ML SYRINGE IV PRN (00:35)
[2020-04-28] MEDS: ALBUMIN 25% 50 ML IV SCH (00:43)
[2020-04-28] MEDS ORDERED: SODIUM CHLORIDE 0.9% 1000ML 500 ML IV ONE (04:59)
[2020-04-28] MEDS: LEVOTHYROXINE SODIUM 75 MCG TABLET PO SCH (05:20)
[2020-04-28] MEDS: HEPARIN SODIUM (PORCINE) 7,500 UNITS in SYRINGE 0 ML SQ SCH ×3 (05:20→22:36)
[2020-04-28 05:28] LABS: Basophils # (auto) 0.02 K/uL (0-0.2); Basophils % (auto) 0.2 %; Eosinophils # (auto) 0.08 K/uL (0-0.5); Eosinophils % (auto) 0.7 %; Hemoglobin 11.6 g/dL (12.0-16.0); Immature Granulocytes # (auto) 0.05 K/uL (0.00-0.02); Immature Granulocytes % (auto) 0.4 %; Lymphocytes # (auto) 1.03 K/uL (1.2-3.4); Lymphocytes % (auto) 9.2 %; Mean Corpuscular Hemoglobin 31.8 pg (25-34); Mean Corpuscular Hgb Conc 34.1 g/dL (32-36); Mean Corpuscular Volume 93.2 fL (80-100); Mean Platelet Volume 9.7 fL (7.4-10.4); Monocytes # (auto) 0.82 K/uL (0.11-0.59); Monocytes % (auto) 7.3 %; Neutrophils % (auto) 82.2 %; Platelet Count 460 K/uL (130-400); RDW Coefficient of Variation 13.6 % (11.5-14.5); RDW Standard Deviation 46.8 fL (36.4-46.3); Red Blood Count 3.65 M/uL (4.2-5.4)
[2020-04-28 05:49] LABS: BUN Creatinine Ratio 27.3 (10-20); Calcium 8.7 mg/dl (8.5-10.1); Creatinine Clr Calc Pharmacy 73.2 ml/min; Est GFR (African American) 76.7; Est GFR (Non-African American) 66.2
[2020-04-28 06:11] LABS: Estimated Average Glucose 134 mg/dl; Hemoglobin A1C 6.3 % (4.5-5.6)
--- NOTE | 2020-04-28 06:52 | Ultrasound Report ---
US venous doppler LE BI HISTORY: Pain. Edema. ?DVT COMPARISON STUDY: 02/20/2019 FINDINGS: There is normal compressibility, flow, and augmentation within the bilateral lower extremit y deep venous systems. IMPRESSION: No DVT within the right or left lower extremity. ACT 112: Negative or not required by law. The above report was generated using voice recognition software. It may contain grammatical, syntax or spelling errors. Electronically signed by: Tino Sanchez M.D. 04/28/2020 6:50 AM
[2020-04-28 07:26] LABS: Appearance Urine Cloudy (Clear); Bacteria Urine Automated Negative (Negative); Bilirubin Urine Negative (Negative); Blood Urine 3+ (Negative); Color Urine Orange; Epithelial Cell Urine Auto 20-30 /lpf (0-5); Glucose Urine UA Negative (Negative); Ketones Urine Trace (Negative); Leukocyte Esterase Urine 1+ (Negative); Nitrite Urine Negative (Negative); Protein Urine 1+ (Negative); RBC Urine Automated >30 /hpf (0-4); Specific Gravity Urine 1.029 (1.000-1.030); Urobilinogen Urine Negative (Negative); pH Urine 5.5 (4.5-7.5)
[2020-04-28] MEDS: ACETAMINOPHEN 325 MG TAB PO PRN ×4 (07:41→22:44)
[2020-04-28] MEDS: LACTOBACILLUS ACIDOPHILUS (FLORANEX) TAB PO SCH (07:43)
[2020-04-28] MEDS: CHOLECALCIFEROL 1,000 UNITS 25 MCG TAB PO SCH (07:43)
[2020-04-28] MEDS: ASPIRIN 81 MG ECTAB PO SCH (07:43)
[2020-04-28] MEDS: POTASSIUM CHLORIDE 10 MEQ TABCR PO SCH (07:44)
[2020-04-28] MEDS: ROSUVASTATIN CALCIUM 20 MG TAB PO SCH (07:44)
[2020-04-28] MEDS: CLOPIDOGREL BISULFATE 75 MG TAB PO SCH (07:45)
[2020-04-28] MEDS ORDERED: TOPIRAMATE 50 MG TAB PO SCH (09:00)
[2020-04-28] MEDS: INSULIN ASPART 100 UNITS/ML 3 ML PEN SC SCH ×4 (09:45→22:22)
[2020-04-28] MEDS: INSULIN GLARGINE SOLOSTAR 100 UNITS/ML 3 ML PEN SC SCH ×2 (09:46→22:22)
[2020-04-28] MEDS: MAGNESIUM OXIDE 400 MG TAB PO SCH (09:53)
--- NOTE | 2020-04-28 14:06 | Medical Student Progress Note ---
Date of Service April 28, 2020 Assessment & Plan (1) Leg swelling: (2) Fever: Andie is a 69-year-old female with a past medical history of CVA, hyperlipidemia, hypothyroidism, and DM who was admitted for hypotension, tachycardia, fever, SOB, bilateral leg edema/pain with fever, SOB. Likely UTI discovered after admission. Fever and persistent tachycardia, suspect UTI Febrile to 38.4 on admission, otherwise afebrile since but has been given Tylenol 650mg every 4hrs PRN Chest x-ray with no acute findings, CTA shows no PE and no overt infectious signs or consolidation Status post 1.5 L fluid bolus with persistent tachycardia Blood cultures pending -No urinary sxs except for suprapubic tenderness + hematuria - Urine cloudy and UA positive for 1+ leuko, 5-10 WBC -Pt was poor historian this morning, unsure of mental status prior to hospitalization so will collate more information from family members/friends -start IV Ciprofloxacin 400 mg IV BID x7 days for UTI Leg pain Bilateral leg pain, left worse than right with mild left leg swelling and asymmetry No signs of PE on CTA and venous doppler with no DVT Of note patient show signs of dehydration on admitting lab work and endorses hx of dehydration + low Mg which can contribute to muscle cramps/spasm -Continue magnesium oxide 400mg PO QAM - Tylenol 650 mg PO Q4H PRN for pain -Signs of venous insufficiency with presence of varicose veins and edema. Pt was put on furosemide 1month ago and unsure of reasoning. Pt can try conservative methods such as leg elevation or compression stocking to reduce swelling. B/L knee pain -taking phentermine and topiramate for wt loss which she lost about ~50lbs -stop phentermine and topiramate -XR B/L knee pending Hypertension Hold [employer] antihypertensives for hypotension Patient on hydrochlorothiazide/lisinopril, metoprolol succinate prior to admission History of CVA No residual deficits Patient reports distant CVA more than 10 years ago with no recurrent events. Continue aspirin daily, continue Plavix daily. - Recommend evaluation by PCP for movement to platelet monotherapy on discharge Continue rosuvastatin Lung cysts Basilar lung cysts appreciated on CTA Unclear etiology, benign in appearance. She has a small fibrous papule on the nose and a history of some skin papules, which with her basilar lung cysts could be consistent with [place]-Angel - recommend serial imaging as outpatient Hypothyroidism - continue Levothyroxine 75 mcg PO daily Hypomagnesemia - Mg 1.7 - continue Magnesium oxide 400 mg PO QAM HLD - continue Rosuvastatin 20 mg PO QAM Contact Dermatitis - erythematous, papular rash on chest s/p tape application to area in ED - continue Triamcinolone topical PRN DVT prophylaxis: SQH Diet: Diabetic CODE STATUS: Conditional code, no CPR but okay with intubation, meds, and shock Disposition: Med/surg with telemetry (3) Hyperlipidemia: Admission and Anticipated Discharge Date Admission Date: April 27, 2020 Supervising Attestation Attending attestation Pt seen and examined in concert with Dr. Levin and Student Dr. Aponte. In agreement with the documented findings as noted in the resident documentation with any exceptions or additions as noted here. Patient reports mild suprapubic pain with palpation with ?cloudy urine but no other overt symptoms. B/L LE pain with WB is chronic and attributed to OA of the knees. On examination, S1/S2 nl RRR no MCG. CTAB. Abd ND BS+ve, TTP suprapubically Abnormal UA - concerning for UTI w/ fever, tachycardia - start ciprofloxacin IV, f/u UCx Tachycardia - likely related to fever v. dehydration (less likely with Cr as noted). Neg CTA chest for PE - monitor on abx, if persistent repeat EKG in AM, troponins. Would likely not resume phentermine (chronic, for wt loss) B/L LE pain - likely OA, chronically - pain control as noted. f/u XR knees Else see resident/student documentation as noted. Subjective Pt presents to ER on 04/27 with B/L LE swelling (L>R), fever of 38.4, tachycardia, mild hypotension, and tachypnea lasting several days. CTA negative for PE, venous doppler negative for DVT, U/A showing gross and microscopic hematuria. No acute events overnight; received NS 1L bolus for tachycardia/hypotension. Pt reports doing fine today. She is unable to ambulate and requires assistance to the bathroom. Pain in leg is 6/10 at rest and 20/10 with exertion, pain is crampy and non-radiating. She reports losing significant weight (previous wt ~300lbs) on topiramate and phentermine which she has been on for months. Has knee arthritis and uses Voltaren cream with good relief. Typically drinks 8cups water daily, but on day of admission only drank one bottle of gatorade and ate cereal. Some STAPLES. No aches, chest pain, palpitations, dizziness, or lightheadedness. 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 No sick contacts. No recent travels. Review of Systems Constitutional: no fever, no chills and no sweats Eyes: no eye pain Ear, Nose, Mouth, Throat: no ear pain and no hearing loss Respiratory: + dyspnea; no cough and no wheezing Cardiovascular: + edema; no chest pain and no lightheadedness Gastrointestinal: no abdominal pain and no vomiting Genitourinary: no dysuria, no difficulty urinating and no flank pain Musculoskeletal: + joint pain (L hip and B/L knees) Physical Exam Constitutional: + obese and cooperative; no acute distress Eyes: PERRL, conjunctivae normal, anicteric sclerae Respiratory: normal respiratory effort, lungs clear to auscultation Cardiovascular: Rate/Rhythm: + tachycardic Heart Sounds: normal S1 and normal S2; no gallop, no murmur and no cardiac rub Vessels: no carotid bruit Extremities: + edema (B/L LE non-pitting edema up to mid-thighs); no calf tenderness Prominent varicose veins in b/l legs Gastrointestinal (Abdomen): normal bowel sounds, soft, nontender, no hepatosplenomegaly Musculoskeletal: no cyanosis or clubbing, extremities motor strength 5/5 Skin: + rash (nonpruritic, diffuse papules on chest, hx of dermatitis+tape) Neurologic: patellar DTR's 2+ bilat, sensation intact Psychiatric: A+Ox3, euthymic affect Genitourinary: + external tenderness (suprapubic tenderness); no CVA tenderness Results & Data ([facility]) Vital Signs (Past 12 Hours) Vital Signs Temp Pulse Resp BP Pulse Ox 04/28/20 07:45 37.5 C 124 H 18 109/69 95 Resident Activity Tracking Resident Involvement: Resident Care Provided Care Provided: Adult Hospital Medicine
[2020-04-28] MEDS: CIPROFLOXACIN / D5W 400 MG/200 ML BAG IV SCH (15:27)
--- NOTE | 2020-04-28 17:23 | XRay Report ---
XR knee RT 1 or 2V routine, XR knee LT 1 or 2V routine CLINICAL HISTORY: Bilateral knee pain. COMPARISON STUDY: Bilateral knees 06/04/2014. FINDINGS: No fracture or dislocation within the right or left knee. No significant soft tissue swelli ng. No knee effusions. There is cartilage space narrowing, tiny marginal osteophytes, and subchondral lucency at the patellae. This is consistent with mild patellar chondromalacia. IMPRESSION: Mild bilateral patellofemoral osteoarthritis. ACT 112: Negative or not required by law. Electronically signed by: Esequiel Braun M.D. 04/28/2020 5:22 PM
[2020-04-28] MEDS: TRIAMCINOLONE ACET 0.025% CR 15 GM TUBE EXT PRN (17:48)
[2020-04-28] MEDS: DICLOFENAC SOD 1% GEL 100 GM TUBE EXT PRN (17:49)
[2020-04-28] MEDS ORDERED: METOPROLOL SUCC 50MG EXT REL TAB PO SCH (21:00)
[2020-04-28] MEDS: FAMOTIDINE 20 MG TAB PO SCH (22:20)
--- NOTE | 2020-04-28 22:23 | Billing Data ---
Date of Service April 28, 2020 Coding Level of Care Code 42389 OBS Care - Level 3
[2020-04-29] MEDS: TRIAMCINOLONE ACET 0.025% CR 15 GM TUBE EXT PRN (00:03)
[2020-04-29] MEDS: CIPROFLOXACIN / D5W 400 MG/200 ML BAG IV SCH ×2 (03:16→15:43)
[2020-04-29] MEDS: DICLOFENAC SOD 1% GEL 100 GM TUBE EXT PRN (03:22)
[2020-04-29] MEDS: ACETAMINOPHEN 325 MG TAB PO PRN ×2 (03:27→20:45)
[2020-04-29] MEDS: LEVOTHYROXINE SODIUM 75 MCG TABLET PO SCH (05:49)
[2020-04-29] MEDS: HEPARIN SODIUM (PORCINE) 7,500 UNITS in SYRINGE 0 ML SQ SCH ×3 (05:49→20:42)
--- NOTE | 2020-04-29 06:01 | Electrocardiogram Report ---
Test Reason : Blood Pressure : / mmHG Vent. Rate : 123 BPM Atrial Rate : 123 BPM P-R Int : 128 ms QRS Dur : 072 ms QT Int : 290 ms P-R-T Axes : 049 024 019 degrees QTc Int : 415 ms Sinus tachycardia with Premature ventricular complexes or Fusion complexes Low voltage QRS Cannot rule out Anterior infarct , age undetermined Nonspecific T wave abnormality Abnormal ECG When compared with ECG of 19-NOV-2019 10:38, Fusion complexes are now Present Premature ventricular complexes are now Present Vent. rate has increased BY 44 BPM Nonspecific T wave abnormality now evident in Inferior leads Nonspecific T wave abnormality now evident in Anterolateral leads Confirmed by David Cisneros ([id number]) on 04/29/2020 6:00:54 AM Referred By: REFERRED SELF Confirmed By:David Cisneros
[2020-04-29 06:37] LABS: Basophils # (auto) 0.02 K/uL (0-0.2); Basophils % (auto) 0.2 %; Eosinophils # (auto) 0.37 K/uL (0-0.5); Eosinophils % (auto) 3.7 %; Hematocrit (blood only) 33.8 % (37-47); Hemoglobin 11.2 g/dL (12.0-16.0); Immature Granulocytes # (auto) 0.04 K/uL (0.00-0.02); Immature Granulocytes % (auto) 0.4 %; Lymphocytes # (auto) 1.39 K/uL (1.2-3.4); Mean Corpuscular Hemoglobin 31.3 pg (25-34); Mean Corpuscular Hgb Conc 33.1 g/dL (32-36); Mean Corpuscular Volume 94.4 fL (80-100); Mean Platelet Volume 9.8 fL (7.4-10.4); Monocytes % (auto) 10.1 %; Neutrophils % (auto) 71.6 %; Platelet Count 467 K/uL (130-400); RDW Coefficient of Variation 13.8 % (11.5-14.5); RDW Standard Deviation 47.8 fL (36.4-46.3); Red Blood Count 3.58 M/uL (4.2-5.4); White Blood Count 9.92 K/uL (4.8-10.8)
[2020-04-29 07:19] LABS: BUN Creatinine Ratio 19.2 (10-20); Calcium 9.7 mg/dl (8.5-10.1); Creatinine Clr Calc Pharmacy 78.4 ml/min; Est GFR (African American) 83.4; Est GFR (Non-African American) 71.9; Magnesium 1.9 mg/dl (1.8-2.4); Potassium 3.6 mmol/L (3.5-5.1)
[2020-04-29] MEDS: POTASSIUM CHLORIDE 10 MEQ TABCR PO SCH (08:11)
[2020-04-29] MEDS: CLOPIDOGREL BISULFATE 75 MG TAB PO SCH (08:11)
[2020-04-29] MEDS: CHOLECALCIFEROL 1,000 UNITS 25 MCG TAB PO SCH (08:12)
[2020-04-29] MEDS: MAGNESIUM OXIDE 400 MG TAB PO SCH (08:12)
[2020-04-29] MEDS: LACTOBACILLUS ACIDOPHILUS (FLORANEX) TAB PO SCH (08:12)
[2020-04-29] MEDS: ROSUVASTATIN CALCIUM 20 MG TAB PO SCH (08:13)
[2020-04-29] MEDS: ASPIRIN 81 MG ECTAB PO SCH (08:13)
[2020-04-29] MEDS ORDERED: dilTIAZem HCL 30 MG TAB PO ONE (08:15)
[2020-04-29] MEDS: INSULIN ASPART 100 UNITS/ML 3 ML PEN SC SCH ×4 (09:10→20:41)
[2020-04-29] MEDS: INSULIN GLARGINE SOLOSTAR 100 UNITS/ML 3 ML PEN SC SCH ×2 (09:13→20:41)
[2020-04-29] MEDS ORDERED: METOPROLOL TARTRATE 1 MG/ML VIAL IV ONE (09:45)
--- NOTE | 2020-04-29 10:04 | Medical Student Progress Note ---
Date of Service April 29, 2020 Assessment & Plan (1) Leg swelling: (2) Fever: Andie is a 69-year-old female with a past medical history of CVA, hyperlipidemia, hypothyroidism, and DM who presented on 04/27/2020 with bilateral lower extremity pain and acute febrile SOB with persistent tachycardia. She is doing well on Ciprofloxacin 400 mg IV Q12H for UTI, but continues to have persistent tachycardia with new atrial flutter. Persistent tachycardia with new Atrial flutter -04/29 EKG: Atrial flutter with 2:1 AV conduction - Likely paroxysmal atrial flutter - Stress test in 02/2020 was normal - moved to telemetry and cardiology consulted - Lopressor 5 mg IV x2 today --> HR down to 100s-110s and converted to sinus rhythm - Toprol XL 50 mg PO x1 --> HR down to 80s, NSR, and BP stable - appreciate cardiology recs: - on discharge, increase home Toprol XL to 100mg PO QPM - on discharge, start Apixaban 5mg PO BID for anti-coagulation 2/2 paroxysmal atrial flutter - on discharge, discontinue Aspirin and/or Plavix to avoid triple drug therapy Fever, suspect UTI Febrile to 38.4 on admission, otherwise afebrile since but has been given Tylenol 50mg every 4hrs PRN Chest x-ray with no acute findings, CTA shows no PE and no overt infectious signs or consolidation -Blood cultures 24hrs: no growth -No urinary sxs except for suprapubic tenderness + hematuria, WBC 5-10, 1+ leuko on U/A - Urine Cx pending -continue Ciprofloxacin 400 mg IV BID x7 days (day 2) for presumed UTI Leg pain Bilateral leg pain, left worse than right with symmetric edema No signs of PE on CTA and venous doppler with no DVT Of note patient showed signs of dehydration on admitting lab work and endorses hx of dehydration + low Mg which can contribute to muscle cramps/spasm - Mg2+ today is 1.9 from 1.7 -Continue magnesium oxide 400mg PO QAM -Signs of venous insufficiency with presence of varicose veins and edema. Pt was put on furosemide 1month ago and unsure of reasoning. Pt can try conservative methods such as leg elevation or compression stocking to reduce swelling. B/L knee pain -taking phentermine and topiramate for wt loss which she lost about ~50lbs -stop phentermine and topiramate -B/L XR knee: mild b/l patellofemoral OA -continue Voltaren 1% topical PRN for arthritis-related pain Hypertension Hold TRIBAL DELEGATE antihypertensives for hypotension Patient on hydrochlorothiazide/lisinopril, metoprolol succinate prior to admission History of CVA Continue aspirin daily, continue Plavix daily. Patient reports distant CVA more than 10 years ago with no recurrent events. Recommend evaluation for movement to platelet monotherapy on discharge No residual deficits - plan to adjust to one anti-platelet medication on discharge as stated above, per cardiology recs Continue rosuvastatin Lung cysts Basilar lung cysts appreciated on CTA Unclear etiology, benign in appearance. She has a small fibrous papule on the nose and a history of some skin papules, which with her basilar lung cysts could be consistent with [place] - serial imaging as outpatient DVT prophylaxis: Heparin Diet: Diabetic CODE STATUS: Conditional code, no CPR but okay with intubation, meds, and shock Disposition: Med/surge with telemetry (3) Hyperlipidemia: Admission and Anticipated Discharge Date Admission Date: April 27, 2020 Supervising Attestation I also saw the patient concurrent with the medical student and the resident physician and confirmed leavitt portions of the history and physical examination. I agree with the impression and plan as noted above. Upon our examination, she is resting comfortably in bed. She is not aware of her tachycardia. Blood pressure 155/66. Temperature 36.5 C. Alert and oriented. No acute distress. Cardiovascular: Irregularly irregular; auscultated rate 130 Lungs are clear throughout. Nonlabored respirations. Abdomen is soft and nontender. Extremities without edema. Data Hemoglobin 11.2, platelet count slightly elevated at 467. Electrolytes are unremarkable. Blood cultures from April 27 showed no growth Atrial flutter Transfer to telemetry and consult cardiology IV Lopressor followed by Toprol-XL Start apixaban 5 mg p.o. twice daily Would likely keep one of her antiplatelet agents given her history of CVA UTI Ciprofloxacin Hypertension She had some relatively low blood pressures upon admission and earlier today We will need to monitor as we increase her beta-abel Ultimately may need to decrease some of her home medications to allow for higher dose of beta-abel. Subjective No overnight events. Pt has been able to ambulate better today, taking 2-5 steps to the bathroom with less pain. B/L knee pain significantly better with Voltaren gel. She is still persistently tachycardic with highest HR this morning at 173 despite hydration and Ciprofloxacin 400 mg IV Q12H. Reports no symptoms - no chest pain, palpitation, lightheadedness, dizziness, or SOB at rest. Mild SOB with exertion and improving swelling/pain in B/L LE. Review of Systems Respiratory: + dyspnea on exertion; no cough and no wheezing Cardiovascular: + edema; no chest pain, no palpitations, no lightheadedness, no syncope, no calf pain and no claudication Musculoskeletal: + joint pain (B/L knees, improving on Voltaren. ); no limited range of motion, no muscle weakness and no body aches Physical Exam Constitutional: + obese and cooperative; no acute distress Eyes: PERRL, conjunctivae normal, anicteric sclerae Respiratory: normal respiratory effort, lungs clear to auscultation Cardiovascular: Rate/Rhythm: + tachycardic Heart Sounds: normal S1 and normal S2; no gallop, no murmur and no cardiac rub Vessels: no carotid bruit Extremities: + edema (bilateral lower extremity edema); no calf tenderness Gastrointestinal (Abdomen): normal bowel sounds, soft, nontender, no hepatosplenomegaly Musculoskeletal: no cyanosis or clubbing, extremities motor strength 5/5 Skin: + rash (nonpruritic, diffuse papules on chest, hx of dermatitis+tape) and + scar (R distal medial coronado, 7 1cm circumferential, shallow, flesh-colored pits) Neurologic: patellar DTR's 2+ bilat, sensation intact Psychiatric: A+Ox3, euthymic affect Genitourinary: + external tenderness (suprapubic tenderness); no CVA tenderness Results & Data ([facility]) Vital Signs (Past 12 Hours) Vital Signs Temp Pulse Resp BP Pulse Ox 04/29/20 08:10 173 H 04/29/20 07:39 36.9 C 16 111/65 95 04/28/20 23:24 36.9 C 129 H 18 109/63 94 Resident Activity Tracking Resident Involvement: Resident Care Provided Care Provided: Adult Hospital Medicine
[2020-04-29] MEDS ORDERED: METOPROLOL TARTRATE 1 MG/ML VIAL IV STA (10:54)
[2020-04-29 12:18] LABS: T4 Free Thyroxine 1.31 ng/dl (0.8-1.6); Thyroid Stimulating Hormone 3.28 uIu/ml (0.300-4.500)
[2020-04-29] MEDS ORDERED: METOPROLOL SUCC 50MG EXT REL TAB PO STA (15:23)
--- NOTE | 2020-04-29 19:08 | Cardiology Consultation ---
Date of Consultation April 29, 2020 Assessment & Plan (1) Paroxysmal atrial flutter: (2) Hypertension: (3) UTI (urinary tract infection): ASSESSMENT/PLAN: 1. Paroxysmal atrial flutter: Diagnosis was discussed with her. She was asymptomatic and her episode lasted less than 1 day. Exact time of onset unknown as she was not on telemetry at that time. She spontaneously converted. Atrial flutter occurred while off of home metoprolol as she had episodes of hypotension while here with UTI. Recommend resuming her home dose of metoprolol succinate 50 mg daily. She was given 1 dose today this afternoon. Recommend anticoagulation for stroke risk reduction. Consider Eliquis 5 mg twice daily. Would not continue dual anti-platelet therapy while on anticoagulation therapy. Will arrange for 30 day outpatient event monitor to have a better understanding of her atrial flutter burden. If she has significant burden, would consider more definitive treatment. 2. Hypertension: Initially, she had some episodes of hypotension but mostly normotensive today. Most recent blood pressure mildly hypertensive. Resume home dose of beta-abel and titrate if necessary. 3. UTI: As per primary service. 4. Sinus tachycardia: Could be due to her active infection with her UTI. continue treatment for her UTI. Resume home dose of beta-abel. 5. Disposition: Please call with any other questions or concerns. Plan of care communicated with primary hospitalist service. Cardiology office will arrange follow up to be done in approximately 2 months, after her event monitor has been completed. Thank you for allowing me to participate in the care of your patient. Please call for any other questions or concerns. Sincerely, Babatunde Cisneros M.D. History of Present Illness Reason for Consultation: Atrial flutter Requesting Physician: Holger Levin Attending Physician: Edinson Pang DO History of Present Illness Ms. Polanco is a very pleasant 69-year-old female with a history significant for type 2 diabetes, hypertension, and prior TIA/stroke in 2004 in the setting of severe hypertension and right arm tingling (placed on aspirin and Plavix ). She was admitted on 04/27/2020 after she presented with bilateral lower extremity pain, chills, night sweats, and found to have fever with a T-max of 38.4 C. while here, it was suspected that she had UTI and she was placed on ciprofloxacin. She was found have srinivasa hematuria, which has improved. She denies other bleeding such as melena or hematochezia. She denies dysuria. She denies chest pain, shortness of breath, palpitations, syncope, near-syncope, or significant edema. For the past 1.5 weeks, she has felt ill overall with fatigue and leg swelling. There was some dyspnea with exertion which had also been present through December in January which prompted stress echo. Stress echo was reported as negative. Since then, her dyspnea with exertion has improved. When she presented, she did have episodes of hypotension and therefore her home beta-abel, metoprolol succinate 50 mg was held. Other antihypertensives were also held. Review of systems: As above. Review of systems otherwise negative/ unremarkable. Family history: Multiple brothers with premature CAD diagnosed in 40s and 50s. Father with CHF. Mother with CHF. Social history: She denies tobacco, alcohol, or drug abuse. She is but remains friends with her ex-. She has 1 son. Grandchildren. Her brother lives with her. She is a retired AUTO MECHANIC SUPERVISOR. Allergies Allergy/AdvReac Type Severity Reaction Status Date / Time bee venom protein (honey bee) Allergy Mild Swelling Verified 04/27/20 21:52 Penicillins Allergy Unknown Unknown Verified 04/27/20 21:52 Home Medications Home Medications Medication Instructions Recorded Confirmed Type Lactobacillus acidophilus 0 mg PO QAM 04/27/20 04/27/20 History [Acidophilus] aspirin [Aspirin Low Dose] 81 mg PO QAM 04/27/20 04/27/20 History cholecalciferol (vitamin D3) 25 mcg PO QAM 04/27/20 04/27/20 History [Vitamin D3] clopidogrel 75 mg PO QAM 04/27/20 04/27/20 History docusate sodium 100 mg PO DAILY PRN 04/27/20 04/27/20 History famotidine [Acid Student Financial Services Counselor 20 mg PO HS 04/27/20 04/27/20 History (famotidine)] furosemide 20 mg PO QAM 04/27/20 04/27/20 History levothyroxine [Euthyrox] 75 mcg PO QAM 04/27/20 04/27/20 History lisinopril-hydrochlorothiazide 1 tab PO QAM 04/27/20 04/27/20 History metformin 1,000 mg PO BID 04/27/20 04/27/20 History metoprolol succinate 50 mg PO QPM 04/27/20 04/27/20 History minocycline 50 mg PO BID 04/27/20 04/27/20 History phentermine 18.75 mg PO BID 04/27/20 04/27/20 History potassium chloride 10 meq PO QAM 04/27/20 04/27/20 History rosuvastatin 20 mg PO QAM 04/27/20 04/27/20 History topiramate 50 mg PO BID 04/27/20 04/27/20 History triamcinolone acetonide 1 applic TOPICAL BID PRN 04/27/20 04/27/20 History Patient History Medical History (Updated 04/29/20 @ 19:03 by David Cisneros MD) CVA (cerebral vascular accident) Hyperlipidemia Hypertension Hypothyroid Type 2 diabetes mellitus Surgical History No pertinent past surgical history Social History Smoking Status: Never smoker Hx Alcohol Use: No Hx Substance Use: No Preferred Language: Syriac Communication Ability: Effective Structural Steel Painter Required: No Beliefs That Will Affect Care: None Current Living Situation: Family Current Living Situation Comment: brother Feels Safe at Home: Yes Physical Exam Physical Exam: Gen.: No acute distress. Alert and oriented. HEENT: Anicteric sclera. Neck: Thick neck. No bruits. Normal carotid upstrokes bilaterally. Cardiac: PMI was nonpalpable. No ventricular heave. Regular and mildly tachycardic. Normal S1-S2. No murmurs, rubs, or gallops. Pulmonary: Clear to auscultation bilaterally without wheezes, rales, or rhonchi. Abdomen: Soft, nontender, nondistended, with normoactive bowel sounds. No bruits noted. Extremities: 2+ radial pulses bilaterally. 2+ posterior tibialis pulses bilaterally. No pitting edema or cyanosis. Psychiatric: Affect appears appropriate. Results & Data ([facility] [place]) Vital Signs (Past 12 Hours) Vital Signs Temp Pulse Pulse Pulse Resp BP BP 04/29/20 15:15 36.5 C 80 18 155/66 H 04/29/20 11:10 120 H 18 115/71 04/29/20 11:00 176 H 20 122/75 04/29/20 10:55 177 H 104/65 04/29/20 10:45 178 H 177 H 20 104/67 04/29/20 08:10 173 H 04/29/20 07:39 36.9 C 16 111/65 Pulse Ox 04/29/20 15:15 95 04/29/20 11:10 96 04/29/20 11:00 95 04/29/20 10:55 04/29/20 10:45 95 04/29/20 08:10 04/29/20 07:39 95 Intake & Output 04/27/20 04/28/20 04/29/20 04/30/20 06:59 06:59 06:59 06:59 Intake Total 2515 / 2515 1815 / 1815 431.667 / 431.667 Output Total 550 / 550 2300 / 2300 Balance 1964 / 1964 -485 / -485 431.667 / 431.667 Weight 116 kg Laboratory Results Laboratory Results - last 24 hr 04/28/20 04/29/20 04/29/20 21:05 05:57 05:57 WBC 9.92 RBC 3.58 L Hgb 11.2 L Hct 33.8 L MCV 94.4 MCH 31.3 MCHC 33.1 RDW Std Deviation 47.8 H RDW Coeff of Elton 13.8 Plt Count 467 H MPV 9.8 Immature Gran % (Auto) 0.4 Neut % (Auto) 71.6 Lymph % (Auto) 14.0 Dixon % (Auto) 10.1 Eos % (Auto) 3.7 Baso % (Auto) 0.2 Neut # (Auto) 7.10 H Lymph # (Auto) 1.39 Dixon # (Auto) 1.00 H Eos # (Auto) 0.37 Baso # (Auto) 0.02 Immature Gran # (Auto) 0.04 H Sodium 136 Potassium 3.6 Chloride 106 Carbon Dioxide 23 Anion Gap 8.0 BUN 16 Creatinine 0.84 Est Cr Clr Drug Dosing 78.4 Est GFR ( Amer) 83.4 Est GFR (Non-Af Amer) 71.9 BUN/Creatinine Ratio 19.2 Glucose 103 H POC Glucose 125 H Calcium 9.7 Magnesium 1.9 TSH Free T4 04/29/20 04/29/2004/29/20 05:57 08:07 12:41 WBC RBC Hgb Hct MCV MCH MCHC RDW Std Deviation RDW Coeff of Elton Plt Count MPV Immature Gran % (Auto) Neut % (Auto) Lymph % (Auto) Dixon % (Auto) Eos % (Auto) Baso % (Auto) Neut # (Auto) Lymph # (Auto) Dixon # (Auto) Eos # (Auto) Baso # (Auto) Immature Gran # (Auto) Sodium Potassium Chloride Carbon Dioxide Anion Gap BUN Creatinine Est Cr Clr Drug Dosing Est GFR ( Amer) Est GFR (Non-Af Amer) BUN/Creatinine Ratio Glucose POC Glucose 102 H 119 H Calcium Magnesium TSH 3.280 Free T4 1.31 04/29/20 16:14 WBC RBC Hgb Hct MCV MCH MCHC RDW Std Deviation RDW Coeff of Elton Plt Count MPV Immature Gran % (Auto) Neut % (Auto) Lymph % (Auto) Dixon % (Auto) Eos % (Auto) Baso % (Auto) Neut # (Auto) Lymph # (Auto) Dixon # (Auto) Eos # (Auto) Baso # (Auto) Immature Gran # (Auto) Sodium Potassium Chloride Carbon Dioxide Anion Gap BUN Creatinine Est Cr Clr Drug Dosing Est GFR ( Amer) Est GFR (Non-Af Amer) BUN/Creatinine Ratio Glucose POC Glucose 110 H Calcium Magnesium TSH Free T4 Diagnostic Findings Venous duplex 04/27/2020: No DVT bilateral lower extremities. Chest CTA 04/27/2020: No acute aortic pathology or PE. Telemetry personally reviewed: Atrial flutter with rapid ventricular response, converting to sinus rhythm at 12 noon on 04/29/2020. ECG personally reviewed: ECG 04/27/2020: Sinus tachycardia 123 bpm. PVC. Cannot rule out anterior infarct. Nonspecific T-wave abnormality. ECG 04/29/2020: Atrial flutter with 2-1 av conduction at 171 bpm. Possible inferior infarct. Stress Echo 01/19/2020: Negative stress echo at 95% MPHR. Normal LV size, wall motion, systolic function. EF 60-65%. No significant valvular abnormalities. Medications Administered Current Inpatient Medications Acetaminophen (Acetaminophen 325 Mg Tab) 650 mg PO Q4H PRN PRN Reason: pain/fever Stop: 05/28/20 00:34 Last Admin: 04/29/20 03:27 Dose: 650 mg Documented by: Aspirin (Aspirin 81 Mg Ectab) 81 mg PO QAM [facility] Stop: 05/28/20 08:59 Last Admin: 04/29/20 08:13 Dose: 81 mg Documented by: Clopidogrel Bisulfate (Clopidogrel Bisulfate 75 Mg Tab) 75 mg PO QAM [facility] Stop: 05/28/20 08:59 Last Admin: 04/29/20 08:11 Dose: 75 mg Documented by: Dextrose (Dextrose 50% 50 Ml Syringe) 25 - 50 ml IV UD PRN; Protocol PRN Reason: Hypoglycemia Protocol Stop: 05/28/20 00:34 Diclofenac Sodium (Diclofenac Sod 1% Gel 100 Gm Tube) 2 gm EXT [id number] PRN PRN Reason: arthritis Stop: 05/28/20 14:20 Last Admin: 04/29/20 03:22 Dose: 2 gm Documented by: Docusate Sodium (Docusate Sodium 100 Mg Cap) 100 mg PO DAILY PRN PRN Reason: Constipation Stop: 05/28/20 00:34 Famotidine (Famotidine 20 Mg Tab) 20 mg PO HS [facility] Stop: 05/28/20 20:59 Last Admin: 04/28/20 22:20 Dose: Not Given Documented by: Glucagon (Glucagon For Inj 1 Mg Vial) 1 mg SQ UD PRN; Protocol PRN Reason: Hypoglycemia Protocol Stop: 05/28/20 00:34 Glucose (Glucose 10 Tabs/Tube) 4 - 8 tabs PO UD PRN; Protocol PRN Reason: Hypoglycemia Protocol Stop: 05/28/20 00:34 Glucose (Glucose 40% Gel 15 Gm Tube) 15 - 30 gm PO UD PRN; Protocol PRN Reason: Hypoglycemia Protocol Stop: 05/28/20 00:34 Heparin Sodium (Porcine) 7,500 (units/ Syringe) 0.75 mls @ 10 mls/min SQ Q8 [facility] Stop: 05/28/20 05:59 Last Admin: 04/29/20 15:44 Dose: 10 mls/min Documented by: Ciprofloxacin (Cipro / D5w) 400 mg in 200 mls @ 100 mls/hr IV Q12H [facility]; Protocol Stop: 05/04/20 14:59 Last Infusion: 04/29/20 17:14 Dose: 0 mls/hr Documented by: Insulin Aspart (Insulin Aspart 100 Units/Ml 3 Ml Pen) 0 units SC ACHS [facility] Stop: 05/28/20 07:29 Last Admin: 04/29/20 17:12 Dose: 3 units Documented by: Insulin Glargine (Insulin Glargine Solostar 100 Units/Ml 3 Ml Pen) 10 units SC BID [facility] Stop: 05/28/20 08:59 Last Admin: 04/29/20 09:13 Dose: 10 units Documented by: Lactobacillus Acidophilus (Lactobacillus Acidophilus (Floranex) Tab) [facility] [place] Stop: 05/28/20 08:59 Last Admin: 04/29/20 08:12 Dose: 4 tab Documented by: Levothyroxine Sodium (Levothyroxine Sodium 75 Mcg Tablet) [facility] Stop: 05/28/20 06:29 Last Admin: 04/29/20 05:49 Dose: 75 mcg Documented by: Magnesium Oxide (Magnesium Oxide 400 Mg Tab) 400 [facility] [place] Stop: 05/28/20 08:59 Last Admin: 04/29/20 08:12 Dose: 400 mg Documented by: Miscellaneous (Carbohydrates For Hypoglycemia ) 15 - 30 gm PO UD PRN PRN Reason: Hypoglycemia Protocol Stop: 05/28/20 00:34 Potassium Chloride (Potassium Chloride 10 Meq Tabcr) 10 meq PO [facility] Stop: 05/28/20 08:59 Last Admin: 04/29/20 08:11 Dose: 10 meq Documented by: Rosuvastatin Calcium (Rosuvastatin Calcium 20 Mg Tab) 20 [facility] [place] Stop: 05/28/20 08:59 Last Admin: 04/29/20 08:13 Dose: 20 mg Documented by: Triamcinolone Acetonide (Triamcinolone Acet 0.025% Cr 15 Gm Tube) 1 appln EXT [id number] PRN PRN Reason: Rash Stop: 05/28/20 13:46 Last Admin: 04/29/20 00:03 Dose: 1 appln Documented by: Vitamin D (Cholecalciferol 1,000 Units 25 Mcg Tab) 1,000 units [facility] [place] Stop: 05/28/20 08:59 Last Admin: 04/29/20 08:12 Dose: 1,000 units Documented by: PG Care Time/CCT Total # of Minutes Spent Total Time Spent with Patient: Total time spent is greater than 50% in coordination of care (as documented) at patient's floor/unit and/or counseling patient: Coding Level of Care Code 71554 Initial Inpt Care Lvl 2 Diagnoses Paroxysmal atrial flutter I48.92 Hypertension I10 UTI (urinary tract infection) N39.0
[2020-04-29] MEDS: FAMOTIDINE 20 MG TAB PO SCH (20:43)
[2020-04-30] MEDS: CIPROFLOXACIN / D5W 400 MG/200 ML BAG IV SCH (03:01)
[2020-04-30] MEDS: DICLOFENAC SOD 1% GEL 100 GM TUBE EXT PRN (05:22)
[2020-04-30] MEDS: LEVOTHYROXINE SODIUM 75 MCG TABLET PO SCH (05:33)
[2020-04-30] MEDS: HEPARIN SODIUM (PORCINE) 7,500 UNITS in SYRINGE 0 ML SQ SCH ×3 (05:33→20:29)
--- NOTE | 2020-04-30 06:49 | Hospitalist Progress Note ---
Date of Service April 30, 2020 Assessment & Plan (1) Leg swelling: (2) Fever: Andie is a 69-year-old female with a past medical history of CVA, hyperlipidemia, hypothyroidism, and DM who presented on 04/27/2020 with bilateral lower extremity pain and acute febrile SOB with persistent tachycardia. She is doing well on Ciprofloxacin 400 mg IV Q12H for UTI, and was originally noted to have persistent tachycardia with new atrial flutter, both of which now seem to be controlled Persistent tachycardia with new Atrial flutter, like paroxysmal -- controlled 04/30/20 -04/29 EKG: Atrial flutter with 2:1 AV conduction - Stress test in 02/2020 was normal - moved to telemetry and cardiology consulted - (04/29) s/p Lopressor 5 mg IV x2 --> HR down to 100s-110s and converted to sinus rhythm; after, s/p Toprol XL 50 mg PO x1 --> HR down to 80s, NSR, and BP stable - appreciate cardiology recs: - can continue home Toprol XL 50mg PO qPM --> given 04/29 in PM without difficulty - on discharge, initiate Apixaban 5mg PO BID for anti-coagulation 2/2 paroxysmal atrial flutter - on discharge, discontinue Aspirin and/or Plavix to avoid triple drug therapy - on discharge, utilize 30-day event monitor for further evaluation of atrial flutter. F/u with cardiology in 1 month. - (04/30) Rate and rhythm controlled s/p resumption of normal home Toprol XL 50mg PO qHS --> continue as directed Fever, suspect UTI Febrile to 38.4 on admission, otherwise afebrile since but has been given Tylenol 50mg every 4hrs PRN Chest x-ray with no acute findings, CTA shows no PE and no overt infectious signs or consolidation - (04/29) No urinary sxs except for suprapubic tenderness + hematuria, WBC 5-10, 1+ leuko on U/A - (04/30) Blood cultures 48hrs: no growth - (04/30) Transition from ciprofloxacin 400 mg IV BID x7 days (day 3/7) --> ciprofloxacin 500mg PO q12h to complete course (~4 more days) Leg pain, bilateral, no findings of CT-PE or LE venous doppler -- resolved Bilateral leg pain, left worse than right with symmetric edema No signs of PE on CTA and venous doppler with no DVT Of note patient showed signs of dehydration on admitting lab work and endorses hx of dehydration + low Mg which can contribute to muscle cramps/spasm -- both now resolved 04/30 -(04/30) Mg2+ today is 1.9 from 1.7 --> magnesium on 04/30 AM labs were WNL at 2.2. -Continue magnesium oxide 400mg PO QAM -Signs of venous insufficiency with presence of varicose veins and edema. Pt was put on furosemide 1month ago and unsure of reasoning. Pt can try conservative methods such as leg elevation or compression stocking to reduce swelling. B/L knee pain -taking phentermine and topiramate for wt loss which she lost about ~50lbs -stop phentermine and topiramate -B/L XR knee: mild b/l patellofemoral OA -continue Voltaren 1% topical PRN for arthritis-related pain Hypertension -Hold home HCTZ-lisinopril given low-normal pressures throughout hospital course -(04/30) Given patient's recent pressures (mostly in the 90s/60s range, never below), should consider either holding HCTZ-lisinopril until outpatient PCP f/u vs. lowering dose (without HCTZ - patient mentions recent photosensitivity and u nclear whether or not this could be contributory) -Continue home Toprol XL 50mg PO qPM, at direction of cardiology History of CVA -Plan to d/c home Plavix in setting of Apixaban initiation, avoid triple therapy per Cards recs. Continue home ASA Patient reports distant CVA more than 10 years ago with no recurrent events. Recommend evaluation for movement to platelet monotherapy on discharge No residual deficits Continue rosuvastatin Lung cysts Basilar lung cysts appreciated on CTA Unclear etiology, benign in appearance. She has a small fibrous papule on the nose and a history of some skin papules, which with her basilar lung cysts could be consistent with [place] - serial imaging as outpatient DVT prophylaxis: Heparin Diet: Diabetic CODE STATUS: Conditional code, no CPR but okay with intubation, meds, and shock Disposition: Med/surge with telemetry -- (04/30) PT consulted placed for ambulation assessment (3) Hyperlipidemia: Admission and Anticipated Discharge Date Admission Date: April 29, 2020 Supervising Physician Co-Signing Physician Notes I also saw the patient with the resident physician and confirmed leavitt portions of the history and physical examination. Agree with the impression and plan as noted in the resident dictation. Upon examination, she reports no leg pain. She she is quite talkative, and overall get the feeling that she feels better. Data Blood pressure remains in the 90s to low 100s systolic, although when talking to the patient today this is not too far from her baseline. Hemoglobin is unchanged at 11.2. Platelet count mildly elevated at 489. Atrial flutter She is now in a normal sinus to sinus tachycardia Continue beta-abel, with attention to her blood pressure Continue apixaban 5 mg p.o. twice daily Would likely keep one of her antiplatelet agents given her history of CVA UTI Ciprofloxacin Hypertension Ultimately may need to decrease some of her home medications to allow for higher dose of beta-abel. Subjective NAEO. Reports feeing well at the bedside this morning, just having finished breakfast. Got up several times in the night to urinate, no dysuria or frequency. No symptoms of lightheadedness or pre-syncope during ambulation or [id number]. Denies chest pains, palpitations, shortness of breath. Leg pain absent this AM. Review of Systems Review of Systems: As per HPI Physical Exam Respiratory: normal respiratory effort, lungs clear to auscultation Cardiovascular: RRR, no murmur, no edema Extremities: no calf tenderness Gastrointestinal (Abdomen): Inspection/Auscultation: abdomen not distended Percussion/Palpation: abdomen soft; abdomen nontender no suprapubic tenderness Psychiatric: Orientation: alert Results & Data Results & Data ([facility]) Vital Signs (Past 12 Hours) Vital Signs Temp Pulse Pulse Resp BP Pulse Ox 04/30/20 03:00 37.1 C 77 20 96/61 L 96 04/30/20 02:07 83 04/30/20 00:00 36.9 C 80 18 98/61 L 96 04/29/20 20:58 102 H 04/29/20 19:49 36.9 C 104 H 18 120/74 95
--- NOTE | 2020-04-30 06:51 | Electrocardiogram Report ---
Test Reason : Blood Pressure : / mmHG Vent. Rate : 171 BPM Atrial Rate : 342 BPM P-R Int : 000 ms QRS Dur : 104 ms QT Int : 302 ms P-R-T Axes : 000 012 -83 degrees QTc Int : 509 ms Atrial flutter with 2:1 A-V conduction Inferior infarct , age undetermined Cannot rule out Anterior infarct (cited on or before 27-APR-2020) Nonspecific ST and T wave abnormality Abnormal ECG When compared with ECG of 27-APR-2020 18:14, Atrial flutter has replaced Sinus rhythm HR has increased by 48 bpm Confirmed by David Cisneros ([id number]) on 04/30/2020 6:51:14 AM Referred By: REFERRED SELF Confirmed By:David Cisneros
[2020-04-30 08:37] LABS: Basophils # (auto) 0.03 K/uL (0-0.2); Basophils % (auto) 0.4 %; Eosinophils # (auto) 0.82 K/uL (0-0.5); Eosinophils % (auto) 11.4 %; Hematocrit (blood only) 34.4 % (37-47); Hemoglobin 11.2 g/dL (12.0-16.0); Immature Granulocytes # (auto) 0.04 K/uL (0.00-0.02); Immature Granulocytes % (auto) 0.6 %; Lymphocytes # (auto) 1.73 K/uL (1.2-3.4); Lymphocytes % (auto) 24.1 %; Mean Corpuscular Hemoglobin 31.2 pg (25-34); Mean Corpuscular Hgb Conc 32.6 g/dL (32-36); Mean Corpuscular Volume 95.8 fL (80-100); Mean Platelet Volume 9.5 fL (7.4-10.4); Monocytes # (auto) 0.38 K/uL (0.11-0.59); Monocytes % (auto) 5.3 %; Neutrophils # (auto) 4.18 K/uL (1.4-6.5); Neutrophils % (auto) 58.2 %; Platelet Count 489 K/uL (130-400); RDW Coefficient of Variation 13.7 % (11.5-14.5); RDW Standard Deviation 48.1 fL (36.4-46.3); Red Blood Count 3.59 M/uL (4.2-5.4); White Blood Count 7.18 K/uL (4.8-10.8)
[2020-04-30] MEDS: INSULIN ASPART 100 UNITS/ML 3 ML PEN SC SCH ×4 (09:07→20:29)
[2020-04-30] MEDS: INSULIN GLARGINE SOLOSTAR 100 UNITS/ML 3 ML PEN SC SCH ×2 (09:07→20:29)
[2020-04-30] MEDS: POTASSIUM CHLORIDE 10 MEQ TABCR PO SCH (09:10)
[2020-04-30] MEDS: ROSUVASTATIN CALCIUM 20 MG TAB PO SCH (09:10)
[2020-04-30] MEDS: LACTOBACILLUS ACIDOPHILUS (FLORANEX) TAB PO SCH (09:10)
[2020-04-30] MEDS: ASPIRIN 81 MG ECTAB PO SCH (09:10)
[2020-04-30] MEDS: CHOLECALCIFEROL 1,000 UNITS 25 MCG TAB PO SCH (09:11)
[2020-04-30] MEDS: MAGNESIUM OXIDE 400 MG TAB PO SCH (09:11)
[2020-04-30] MEDS: CLOPIDOGREL BISULFATE 75 MG TAB PO SCH (09:11)
[2020-04-30 09:13] LABS: BUN Creatinine Ratio 20.3 (10-20); Calcium 9.3 mg/dl (8.5-10.1); Est GFR (African American) 89.8; Est GFR (Non-African American) 77.5; Magnesium 2.2 mg/dl (1.8-2.4); Potassium 3.6 mmol/L (3.5-5.1)
[2020-04-30] MEDS: CIPROFLOXACIN 250 MG TAB PO SCH ×2 (15:36→20:30)
[2020-04-30] MEDS: TRIAMCINOLONE ACET 0.025% CR 15 GM TUBE EXT PRN (15:37)
[2020-04-30] MEDS: FAMOTIDINE 20 MG TAB PO SCH (20:30)
[2020-05-01] MEDS: ACETAMINOPHEN 325 MG TAB PO PRN ×3 (01:47→21:58)
[2020-05-01] MEDS: HEPARIN SODIUM (PORCINE) 7,500 UNITS in SYRINGE 0 ML SQ SCH ×3 (05:40→20:58)
[2020-05-01] MEDS: LEVOTHYROXINE SODIUM 75 MCG TABLET PO SCH (05:40)
[2020-05-01 07:34] LABS: Basophils # (auto) 0.03 K/uL (0-0.2); Basophils % (auto) 0.6 %; Eosinophils # (auto) 0.77 K/uL (0-0.5); Hematocrit (blood only) 33.7 % (37-47); Immature Granulocytes # (auto) 0.03 K/uL (0.00-0.02); Immature Granulocytes % (auto) 0.6 %; Lymphocytes # (auto) 1.65 K/uL (1.2-3.4); Lymphocytes % (auto) 32.1 %; Mean Corpuscular Hemoglobin 31.1 pg (25-34); Mean Corpuscular Volume 95.2 fL (80-100); Mean Platelet Volume 9.5 fL (7.4-10.4); Monocytes # (auto) 0.42 K/uL (0.11-0.59); Monocytes % (auto) 8.2 %; Neutrophils # (auto) 2.24 K/uL (1.4-6.5); Neutrophils % (auto) 43.5 %; Platelet Count 513 K/uL (130-400); RDW Coefficient of Variation 13.7 % (11.5-14.5); RDW Standard Deviation 47.4 fL (36.4-46.3); Red Blood Count 3.54 M/uL (4.2-5.4); White Blood Count 5.14 K/uL (4.8-10.8)
[2020-05-01 07:43] LABS: Mean Corpuscular Hgb Conc 32.6 g/dL (32-36)
[2020-05-01 07:51] LABS: BUN Creatinine Ratio 22.3 (10-20); Calcium 8.7 mg/dl (8.5-10.1); Creatinine Clr Calc Pharmacy 85.3 ml/min; Est GFR (African American) 94.1; Est GFR (Non-African American) 81.2; Magnesium 2.3 mg/dl (1.8-2.4); Potassium 3.8 mmol/L (3.5-5.1)
[2020-05-01] MEDS: INSULIN ASPART 100 UNITS/ML 3 ML PEN SC SCH ×4 (09:11→20:57)
[2020-05-01] MEDS: LACTOBACILLUS ACIDOPHILUS (FLORANEX) TAB PO SCH (09:14)
[2020-05-01] MEDS: ASPIRIN 81 MG ECTAB PO SCH (09:14)
[2020-05-01] MEDS: ROSUVASTATIN CALCIUM 20 MG TAB PO SCH (09:14)
[2020-05-01] MEDS: CIPROFLOXACIN 250 MG TAB PO SCH ×2 (09:14→20:54)
[2020-05-01] MEDS: POTASSIUM CHLORIDE 10 MEQ TABCR PO SCH (09:15)
[2020-05-01] MEDS: INSULIN GLARGINE SOLOSTAR 100 UNITS/ML 3 ML PEN SC SCH ×2 (09:15→20:55)
[2020-05-01] MEDS: CLOPIDOGREL BISULFATE 75 MG TAB PO SCH (09:16)
[2020-05-01] MEDS: MAGNESIUM OXIDE 400 MG TAB PO SCH (09:16)
[2020-05-01] MEDS: CHOLECALCIFEROL 1,000 UNITS 25 MCG TAB PO SCH (09:16)
[2020-05-01] MEDS: TRIAMCINOLONE ACET 0.025% CR 15 GM TUBE EXT PRN ×3 (09:18→20:59)
[2020-05-01] MEDS: METOPROLOL TARTRATE 25 MG TAB PO SCH ×2 (11:39→20:56)
--- NOTE | 2020-05-01 12:41 | Hospitalist Progress Note ---
Date of Service May 01, 2020 Assessment & Plan (1) Leg swelling: (2) Fever: Andie is a 69-year-old female with a past medical history of CVA, hyperlipidemia, hypothyroidism, and DM who presented on 04/27/2020 with bilateral lower extremity pain and acute febrile SOB with persistent tachycardia. She is doing well on Ciprofloxacin 500 mg PO BID for UTI, and was originally noted to have persistent tachycardia with new atrial flutter, both of which now seem to be controlled. Paroxysmal Atrial Flutter -04/29 EKG: Atrial flutter with 2:1 AV conduction - Stress test in 02/2020 was normal - moved to telemetry and cardiology consulted - (04/29) s/p Lopressor 5 mg IV x2 --> HR down to 100s-110s and converted to sinus rhythm; after, s/p Toprol XL 50 mg PO x1 --> HR down to 80s, NSR, and BP stable - appreciate cardiology recs: - beta-abel for rate-control: patient continues to be intermittently mildly hypotensive, so today will try Lopressor 25 mg PO BID for rate-control - will monitor pressures and HR with new medication today - on discharge, will initiate Apixaban 5mg PO BID for anti-coagulation 2/ paroxysmal atrial flutter - discontinued Plavix today to avoid triple therapy on discharge - on discharge, will utilize 30-day event monitor for further evaluation of atrial flutter. F/u with cardiology in 1 month. UTI Febrile to 38.4 on admission, otherwise afebrile Chest x-ray with no acute findings, CTA shows no PE and no overt infectious signs or consolidation - No urinary sxs except for suprapubic tenderness + hematuria, WBC 5-10, 1+ leuko on U/A - Blood cultures 48hrs: no growth - Continue Ciprofloxacin 250 mg PO BID x7 days (day 4/7) Bilateral Leg Cramping, resolved No signs of PE on CTA and venous doppler with no DVT Of note patient showed signs of dehydration on admitting lab work and endorses hx of dehydration + low Mg which can contribute to muscle cramps/spasm -- both now resolved 04/30 -Continue magnesium oxide 400mg PO QAM -Signs of venous insufficiency with presence of varicose veins and edema. Pt was put on furosemide 1month ago and unsure of reasoning. Pt can try conservative methods such as leg elevation or compression stocking to reduce swelling. Bilateral knee pain -taking phentermine and topiramate for weight loss which she lost about ~50lbs -stop phentermine and topiramate -B/L XR knee: mild b/l patellofemoral OA -continue Voltaren 1% topical PRN for arthritis-related pain Hypertension - d/c HCTZ-Lisinopril as inpatient due to hypotension - on discharge will continue Lopressor vs Toprol only - will follow up with PCP for further management History of CVA -Plan to d/c home Plavix in setting of Apixaban initiation, avoid triple therapy per Cards recs. Continue home ASA Patient reports distant CVA more than 10 years ago with no recurrent events. No residual deficits -d/c home Plavix in setting of Apixaban initiation, avoid triple therapy per Cards recs. Continue home ASA Continue rosuvastatin Lung cysts Basilar lung cysts appreciated on CTA Unclear etiology, benign in appearance. She has a small fibrous papule on the nose and a history of some skin papules, which with her basilar lung cysts could be consistent with [place] - serial imaging as outpatient DVT prophylaxis: SQ Heparin Diet: Diabetic CODE STATUS: Conditional code, no CPR but okay with intubation, meds, and shock Disposition: Med/surge with telemetry, tentative discharge tomorrow pending stability on Lopressor today and overnight - PT and CM on board and have already seen patient (3) Hyperlipidemia: Admission and Anticipated Discharge Date Admission Date: April 29, 2020 Supervising Physician Co-Signing Physician Notes I also saw the patient with the resident physician and confirmed leavitt portions of the history and physical examination. Agree with the impression and plan as noted in the resident dictation. Data Blood pressure in the 110s to 120s today heart rate in the 80s and 90s Hemoglobin is unchanged at 11.2. Platelet count elevated at 513. Atrial flutter She is now in a normal sinus to sinus tachycardia Restart beta-abel, with attention to her blood pressure Continue apixaban 5 mg p.o. twice daily; Stop Plavix but continue baby aspirin UTI Ciprofloxacin Hypertension Her systolic blood pressures go up a little bit which gives us some room for the beta-abel for rate control. May need to adjust her home blood pressure medications to allow for beta-blo cker. Thrombocytosis Probably reactive but will need to follow Subjective No acute events overnight. NSR 70s-90s overnight with brief run of tachycardia. No complaints this morning. No leg pain/cramping with ambulation and continues to have no symptoms of lightheadedness or pre-syncope during ambulation or [id number]. Denies fever/chills, chest pain, palpitations, shortness of breath, dysuria, suprapubic pain. Review of Systems Constitutional: as per Subjective / HPI Respiratory: as per Subjective / HPI Cardiovascular: as per Subjective / HPI Gastrointestinal: as per Subjective / HPI; no abdominal pain, no nausea and no vomiting Genitourinary: as per Subjective / HPI; no difficulty urinating, no urinary frequency, no urinary urgency and no hematuria Physical Exam Constitutional: WD/WN, vitals as above Neck: trachea midline, no thyromegaly normal visual inspection Respiratory: normal respiratory effort, lungs clear to auscultation Cardiovascular: RRR, no murmur, no edema Extremities: no calf tenderness Gastrointestinal (Abdomen): normal bowel sounds, soft, nontender, no hepatosplenomegaly Skin: + rash (erythematous, papular rash on chest - stable) Psychiatric: A+Ox3, euthymic affect Results & Data Results & Data ([facility]) Vital Signs (Past 12 Hours) Vital Signs Temp Pulse Pulse Resp BP Pulse Ox 05/01/20 11:24 36.6 C 88 18 118/77 98 05/01/20 07:37 86 05/01/20 07:00 36.7 C 84 20 110/70 98 05/01/20 04:00 36.9 C 82 20 93/57 L 97 05/01/20 02:21 84 CBC Results Results Complete Blood Count Results: RBC 3.54 M/uL (4.2-5.4) L 05/01/20 WBC 5.14 K/uL (4.8-10.8) 05/01/20 Hgb 11.0 g/dL (12.0-16.0) L 05/01/20 Hct 33.7 % (37-47) L 05/01/20 Plt Count 513 K/uL (130-400) H 05/01/20 Chemistry (BMP) Results BMP Results: Sodium 141 mmol/L (136-145) 05/01/20 Potassium 3.8 mmol/L (3.5-5.1) 05/01/20 Chloride 112 mmol/L (98-107) H 05/01/20 BUN 17 mg/dl (7-18) 05/01/20 Creatinine 0.76 mg/dl (0.6-1.2) 05/01/20 Glucose 80 mg/dl (70-99) 05/01/20 Resident Activity Tracking Resident Involvement: Resident Care Provided Care Provided: [facility]
[2020-05-01] MEDS: FAMOTIDINE 20 MG TAB PO SCH (20:57)
[2020-05-02] MEDS: ACETAMINOPHEN 325 MG TAB PO PRN (03:12)
[2020-05-02] MEDS: DICLOFENAC SOD 1% GEL 100 GM TUBE EXT PRN (03:12)
[2020-05-02] MEDS: HEPARIN SODIUM (PORCINE) 7,500 UNITS in SYRINGE 0 ML SQ SCH (05:46)
[2020-05-02] MEDS: LEVOTHYROXINE SODIUM 75 MCG TABLET PO SCH (05:46)
[2020-05-02] MEDS: MAGNESIUM OXIDE 400 MG TAB PO SCH (08:14)
[2020-05-02] MEDS: ASPIRIN 81 MG ECTAB PO SCH (08:14)
[2020-05-02] MEDS: METOPROLOL TARTRATE 25 MG TAB PO SCH (08:14)
[2020-05-02] MEDS: LACTOBACILLUS ACIDOPHILUS (FLORANEX) TAB PO SCH (08:14)
[2020-05-02] MEDS: POTASSIUM CHLORIDE 10 MEQ TABCR PO SCH (08:15)
[2020-05-02] MEDS: CIPROFLOXACIN 250 MG TAB PO SCH (08:15)
[2020-05-02] MEDS: CHOLECALCIFEROL 1,000 UNITS 25 MCG TAB PO SCH (08:15)
[2020-05-02] MEDS: ROSUVASTATIN CALCIUM 20 MG TAB PO SCH (08:15)
[2020-05-02] MEDS: INSULIN ASPART 100 UNITS/ML 3 ML PEN SC SCH ×2 (08:16→12:36)
[2020-05-02] MEDS: INSULIN GLARGINE SOLOSTAR 100 UNITS/ML 3 ML PEN SC SCH (08:19)
[2020-05-02 08:38] LABS: Hematocrit (blood only) 33.9 % (37-47); Mean Corpuscular Hemoglobin 30.7 pg (25-34); Mean Corpuscular Hgb Conc 32.4 g/dL (32-36); Mean Corpuscular Volume 94.7 fL (80-100); Mean Platelet Volume 9.5 fL (7.4-10.4); Platelet Count 582 K/uL (130-400); RDW Coefficient of Variation 13.6 % (11.5-14.5); RDW Standard Deviation 47.5 fL (36.4-46.3); Red Blood Count 3.58 M/uL (4.2-5.4); White Blood Count 4.79 K/uL (4.8-10.8)
[2020-05-02] MEDS ORDERED: APIXABAN 5 MG TABLET PO SCH (09:00)
[2020-05-02 09:12] LABS: BUN Creatinine Ratio 22.9 (10-20); Calcium 8.6 mg/dl (8.5-10.1); Creatinine Clr Calc Pharmacy 83.3 ml/min; Est GFR (African American) 91.2; Est GFR (Non-African American) 78.7; Magnesium 2.3 mg/dl (1.8-2.4); Potassium 4.1 mmol/L (3.5-5.1)
[2020-05-02 12:09] VITALS: BP 121/76; PULSE 76; TEMP 98.2; O2SAT 96
--- NOTE | 2020-05-02 15:48 | Discharge Summary ---
Date of Service May 02, 2020 Admission HPI Per Admitting Provider Andie is a 69-year-old female with a past medical history of stroke and diabetes who presents with 1 day of night sweats, chills, and bilateral left greater than right leg pain. She reports she has felt fatigued and "a little bit sick "for about a week, and was a little lightheaded after being in the sun. Last night she endorses chills, night sweats, and feeling feverish. She denies shortness of breath, chest pain, chest pressure, and difficulty breathing. Denies cough. Denies dysuria, increased urinary frequency. This morning she noticed a increase in a crampy painful sensation in both of her legs bilaterally, throughout the entire upper and lower leg circumferentially. She reports that this pain was as bad as a 10 out of 10 and prevented her from walking. She had no change in sensation. She feels that her inability to walk was more pain limited, and less weakness. She has recently been started on Lasix, otherwise no new medication changes. Medical history: Reviewed, includes stroke many years ago and photosensitive dermatitis Surgical history: Reviewed Medications: Reviewed Allergies: Reviewed, pertinent positive for penicillin Social: Denies tobacco, alcohol, and recreational drug use CODE STATUS: Does not want CPR, okay with shock and medications and intubation for respiratory support Admission Exam Per Admitting Provider Physical Exam: General: A&Ox3. NAD. Cooperative. HEENT: Atraumatic, normocephalic. Pulm: CTAB A&P. -wheezes, -rales, -rhonchi. Symmetrical chest rise. No increase work of breathing. No respiratory distress. Cardiac: Tachycardic, -mrg. Radial pulses intact and symmetrical. Abdominal: Nontender, nondistended, soft. BS present. CN II: Visual contreras are full to confrontation. Pupils are equal and react to light and accomidation. Visual acuity grossly intact. CN III, IV, : At primary gaze, there is no eye deviation. EoM intact without nystagmus. No visual field cuts. CN V: Facial sensation is intact to soft touch in all 3 divisions bilaterally. CN VII: No facial asymmetry, full strength to eyebrow raise, smile, eye close, and cheek puff. CN VII: Hearing is grossly intact. CN IX, X: Palate elevates symmetrically. Phonation is normal without dysarthria. CN XI: Head turning and shoulder shrug are intact CN XII: Tongue protrudes midline. Sensory: Light touch, pinprick intact in upper and low extremities without deficit or asymmetry. Appearance: Left lower extremity about 1 cm larger at the gastroc compared to the right. Tender to palpation through the bulk of the gastroc bilaterally, left more tender than the right. Left lower extremity warm to the touch, without overt erythema. Strength: RUE: Shoulder flexion/extension/internal rotation/external rotation, elbow flexion/extension, finger flexion/extension, billboard erector strength, interosseous 5/5 LUE: Shoulder flexion/extension/internal rotation/external rotation, elbow flexion/extension, finger flexion/extension, billboard erector strength, interosseous 5/5 RLE: ankle plantar flexion/dorsiflexion 5/5 LLE: ankle plantar flexion/dorsiflexion 5/5 Principal Diagnosis Urinary Tract Infection Paroxysmal Atrial Flutter Venous Insufficiency Discharge Exam Constitutional WD/WN, vitals as above Neck trachea midline, no thyromegaly normal visual inspection Respiratory normal respiratory effort, lungs clear to auscultation Cardiovascular RRR, no murmur, no edema Rate/Rhythm: + tachycardic Heart Sounds: normal S1 and normal S2; no gallop, no murmur and no cardiac rub Vessels: no carotid bruit Extremities: + edema (bilateral lower extremity edema); no calf tenderness Gastrointestinal (Abdomen) normal bowel sounds, soft, nontender, no hepatosplenomegaly Skin + rash (erythematous, papular rash on chest - stable) Psychiatric A+Ox3, euthymic affect Discharge Data Allergies Allergy/AdvReac Type Severity Reaction Status Date / Time bee venom protein (honey bee) Allergy Mild Swelling Verified 04/27/20 21:52 Penicillins Allergy Unknown Unknown Verified 04/27/20 21:52 Consultations 04/27/20 21:17 ED Decision to Admit Stat 04/29/20 08:44 Consult Cardiology Routine 05/01/20 12:47 Consult Case Management - Discharge Planning Routine Ordered Studies 04/27/20 17:57 CT angio chest PE protocol Stat 04/28/20 04:58 US venous doppler LE BI Stat Hospital Course (1) UTI (urinary tract infection): Ms. Polanco is a 69 yo female with h/o distant CVA (no residual deficits), HTN, HLD, T2DM who was admitted to [facility] on 04/27/2020 for low-grade fevers, mild hypotension and tachycardia, and leg cramping. Her fevers and hypotension/tachycardia, along with suprapubic tenderness and UA positive for leukocytes and WBCs, were likely due to UTI. She was started on Ciprofloxacin 400 mg IV BID on 04/28 for the urinary tract infection. This was subsequently transitioned to the oral version of Ciprofloxacin PO on 04/30. For leg cramping, patient had US doppler of both legs on 04/28 that was negative for DVT. Also had CTA Chest on 04/28 that was negative for PE. Leg cramping was most likely secondary to dehydration vs. outpatient use of Phentermine and Topiramate for weight loss - these were subsequently discontinued. The patient developed a- flutter with tachycardia in 150s-160s on 04/29 - she was given Lopressor 5 mg IV x2 and converted to NSR in 70s-80s for the rest of hospitalization. Cardiology was consulted and they recommended starting Toprol XL for rate control as well as Apixaban 5 mg PO BID for anti-coagulation secondary to a-flutter. Lastly, they discontinued Plavix to avoid triple therapy and because her CVA was greater than 10 years ago. She was discharged in stable, good condition on 05/02/2020. She will continue to take Toprol XL 25 mg PO daily and Apixaban 5mg PO BID for paroxysmal atrial flutter. She will stop taking Lasix and Lisinopril/Hydrochlorothiazide, as her leg swelling is secondary to venous insufficiency and her blood pressure has been well-controlled without Lisinopril/HCTZ. She will also follow up with Cardiology, so they can arrange a 30-day Holter monitor in order to better diagnose and treat paroxysmal atrial flutter. She will continue to take Ciprofloxacin 250 mg PO BID x3 days for total 7-day treatment course. She will stop taking the Phentermine and Topamax. She will also follow up with her Hydraulic Spinner, Dr. Aranda, to monitor her chronic skin problems. Lastly, she will follow up with her PCP. (2) Paroxysmal atrial flutter: (3) Leg swelling: Total Time Total Time Spent Total Time Spent (In Minutes): >30 minutes Total Time Includes: Examination of the Patient, Discharge Planning and Medication Reconciliation Discharge Plan Discharge Items Patient Disposition: Home - Self-Care Reason For Visit: FEVER, LG PAIN, HYPOTENSION Discharge Diagnosis: Urinary Tract Infection Paroxysmal Atrial Flutter Chronic Venous Insufficiency Activity: Per Instructions section Non-emergency contact: Primary Care Provider and Headliner Installer Call non-emergency contact if: you have any medication questions, your symptoms worsen and your pain is worsening Follow-up/Referrals: Nathen Becerra Jr, [Primary Care Provider] - Diet: Carb Consistent or DM2 Addtl Attending Provider Instructions: You were admitted to [facility] on 04/27/2020 for low-grade fevers, low blood pressure, increased heart rate, and leg cramping. Your fevers and low blood pressure, along with your lower stomach tenderness and cloudy urine, were most likely due to a urinary tract infection. We started you on an IV antibiotic, called Ciprofloxacin, on 04/28 for the urinary tract infection. This was subsequently transitioned to the oral version of Ciprofloxacin on 04/30. We got Ultrasounds of both your legs which showed no signs of blood clots in your legs. We determined that your leg cramping was the outcome of being dehydrated with low blood pressure before coming into the hospital. Another possible cause of your leg cramps, as well as your increased heart rate, is the Phentermine and Topiramate weight loss medications that you were on before admission, so we stopped these medications. You developed an abnormal, very fast heart rate called atrial flutter on 04/29, and we gave you rate-controlling medications that normalized your heart rate. Cardiology was consulted and they recommended starting a medication called Metoprolol to control your fast heart rate, and you tolerated this medication well. They also started a new medication called Apixaban to prevent blood clots that can occur with an abnormal heart rhythm. Lastly, they discontinued your Plavix medication, as bleeding is more likely when someone is on Aspirin, Plavix and Apixaban. You will be discharged in good, stable condition on 05/02/2020. You will continue to take Metoprolol once a day and Apixaban twice a day for your paroxysmal atrial flutter. You will stop taking the Lasix medication (otherwise known as Furosemide), and you will stop taking the Lisinopril/Hydrochlorothiazide.. You should also follow up with Cardiology, so they can set you up with a mobile heart rate monitor for 30 days, in order to better understand your paroxysmal atrial flutter. You will continue to take the oral antibiotic, Ciprofloxacin, twice a day for the next three days. You will stop taking the Phentermine and Topamax weight-loss medications. You should also follow up with your Hydraulic Spinner, Dr. Aranda, to monitor your chronic skin issues. Lastly, you should follow up with your PCP. Pending Studies at Discharge: No Stand-Alone Forms: My New [facility], Smoking Cessation Medications and DC Order Prescriptions: New metoprolol succinate 25 mg capsule,sprinkle,ER 24hr 25 mg PO DAILY Qty: 90 RF: 3 apixaban 5 mg tablet 5 mg PO BID Qty: 180 RF: 3 ciprofloxacin HCl 250 mg tablet 250 mg PO BID Qty: 5 RF: 0 Continued famotidine [Acid Administrator (famotidine)] 10 mg Tablet 20 mg PO HS RF: 0 triamcinolone acetonide 0.025 % lotion 1 applic TOPICAL BID PRN (Reason: Skin Irritation) RF: 0 potassium chloride 10 mEq tablet extended release 10 meq PO QAM RF: 0 levothyroxine [Euthyrox] 75 mcg tablet 75 mcg PO QAM RF: 0 metformin 1,000 mg tablet 1,000 mg PO BID RF: 0 minocycline 50 mg capsule 50 mg PO BID RF: 0 docusate sodium 100 mg Capsule 100 mg PO DAILY PRN (Reason: Constipation) RF: 0 Lactobacillus acidophilus [Acidophilus] Capsule 0 mg PO QAM RF: 0 cholecalciferol (vitamin D3) [Vitamin D3] 25 mcg (1,000 unit) Capsule 25 mcg PO QAM RF: 0 rosuvastatin 20 mg tablet 20 mg PO QAM RF: 0 aspirin [Aspirin Low Dose] 81 mg Tablet,Delayed Release (Dr/Ec) 81 mg PO QAM RF: 0 Discontinued lisinopril-hydrochlorothiazide 20-12.5 mg tablet 1 tab PO QAM RF: 0 metoprolol succinate 50 mg tablet extended release 24 hr 50 mg PO QPM RF: 0 phentermine 37.5 mg tablet 18.75 mg PO BID RF: 0 clopidogrel 75 mg tablet 75 mg PO QAM RF: 0 furosemide 20 mg tablet 20 mg PO QAM RF: 0 topiramate 50 mg tablet 50 mg PO BID RF: 0 Discharge Orders: Discharge Order (Routine); Ordered 08/17/20 Ordered By: Holger Cardona/Other Patient Handouts: High Blood Sugar (Hyperglycemia), Hypoglycemia (Low Blood Sugar), Managing Type 2 Diabetes, Managing Diabetes: The A1C Test, Diabetes: Meal Planning Admission Data Admit Date/Time: 04/29/20 12:09 Attending Provider: Dmitry Lacey Admit Provider: Juan Scanlon Primary Care Provider: Nathen Becerra Jr Other Providers: Juan Manuel Johnson ; David Cisneros ; Edinson Pang Other Interventions: Discharge Summary Assessment (RN) Last Done: 05/02/20 10:47 Supervising Physician Co-Signing Physician Notes I personally examined the patient and verified all leavitt points of history and exam, discussed case, and agree with decision making with Dr Levin. feeling better ready to go home. answered all questions to the best of my ability. vitals ntoed nad heent nc at mmm breathing unlabored no accessory muslces good effort sepsis present on admission related to UTI - now improved. finish course of abx afib / RVR - now controlled. rate control, anticoagulation, outpt f/u. stable for discharge. otherwise as above Resident Activity Tracking Resident Involvement: Resident Care Provided Care Provided: Adult Hospital Medicine
--- NOTE | 2020-05-02 18:08 | Billing Data ---
Date of Service May 02, 2020 Coding Level of Care Code D/C Day Management >30 mins
== END 2020-05-02 16:25 | disposition home or self-care (01) | DRG 872 ==
LOC: 3N 17:32 → ED 17:32 → SUATTDRO 22:35 → 3N 04-28 00:04 → 2N 04-29 08:38 → SUATTDRO 04-29 12:09